=== PATIENT | male | born 1960 | race Caucasian/White ===

== ENCOUNTER → 2017-07-31 | Outpatient (CLI) | payer OTHER ==
[~2017-07-31] MED LIST: ALBUAER2 INH; MULT-506 PO
== END | disposition home or self-care (01) ==
LOC: C.RDSM 12:52
PROVIDERS: ATTEND Orthopaedic Surgery Sports Medicine
DX: M25.512 Pain in left shoulder (principal)

== ENCOUNTER → 2017-09-05 | Outpatient (CLI) | payer OTHER ==
--- NOTE | 2017-09-05 11:37 | DIAGNOSTIC IMAGING REPORT ---
LEFT SHOULDER MRI HISTORY: Left shoulder PAIN TECHNIQUE: Multiplanar multisequence MRI of the left shoulder was performed without contrast. COMPARISON STUDY: Left shoulder 07/31/2017. FINDINGS: AC joint: Mild AC joint arthrosis demonstrated by joint space narrowing and subchondral edema. Rotator cuff: The teres minor and infraspinatus tendons are intact. Full-thickness tear of the supraspinatus tendon which measures 16 x 9 mm. This results in the trace fluid within the subacromial/subdeltoid bursa. There is also a partial tear of the distal subscapularis tendon. Labrum: Linear signal abnormality within the superior labrum consistent with a SLAP tear. Biceps tendon: There is a high-grade partial versus full-thickness tear at the proximal long head of the biceps tendon within the proximal bicipital groove.. Bones: No fracture or dislocation. Cartilage: Mild cartilage thinning within the humeral head and superior glenoid. Miscellaneous: No significant joint effusion. IMPRESSION: 1. Full-thickness tear of the supraspinatus tendon. 2. Partial tear of the distal subscapularis tendon. 3. High-grade partial versus complete tear within the proximal long head of the biceps tendon. 4. Small SLAP tear. Electronically signed by: Jose De Jesus Phipps M.D. 09/05/2017 11:36 AM Dictated Date/Time: 09/05/2017 11:28 AM
== END | disposition home or self-care (01) ==
LOC: C.MRI 10:24
PROVIDERS: ATTEND Orthopaedic Surgery Sports Medicine
DX: M75.22 Bicipital tendinitis, left shoulder (principal)

== ENCOUNTER → 2017-10-05 | Outpatient (CLI) | payer OTHER ==
[~2017-10-05] MED LIST changes: -ALBUAER2 INH; -MULT-506 PO; +VNTHFA/IN INH
[2017-10-05 09:31] LABS: HEMATOCRIT 43.9 % (42-52); HEMOGLOBIN 15.1 g/dL (14.0-18.0); MEAN CELL VOLUME 90.9 fL (80-100); MEAN CORPUSCULAR HEMOGLOBIN 31.3 pg (25-34); MEAN CORPUSCULAR HGB CONC 34.4 g/dl (32-36); MEAN PLATELET VOLUME 10.4 fL (7.4-10.4); PLATELET COUNT 203 K/uL (130-400); RED CELL DISTRIBUTION WIDTH CV 12.3 % (11.5-14.5); RED CELL DISTRIBUTION WIDTH SD 40.8 fL (36.4-46.3); WHITE BLOOD COUNT 5.96 K/uL (4.8-10.8)
[2017-10-05 09:42] LABS: BLOOD UREA NITROGEN 15 mg/dl (7-18); CALCIUM 9.1 mg/dl (8.5-10.1); CARBON DIOXIDE 29 mmol/L (21-32); GLUCOSE 85 mg/dl (70-99); POTASSIUM 3.9 mmol/L (3.5-5.1); SODIUM 138 mmol/L (136-145)
== END | disposition home or self-care (01) ==
LOC: C.CPL 07:14
PROVIDERS: ATTEND Physician Assistant
DX: Z01.818 Encounter for other preprocedural examination (principal); M75.100 Unspecified rotator cuff tear or rupture of unspecified shoulder, not specified as traumatic

== ENCOUNTER 2023-04-27 03:58 | Observation (INO) ==
[2023-04-27] MEDS ORDERED: ONDANSETRON INJ 2 MG/ML 2 ML VIAL IV STA (04:10)
[2023-04-27] MEDS ORDERED: KETOROLAC TROMETHAMINE 15 MG/ML VIAL IV STA (04:10)
[2023-04-27] MEDS: TAMSULOSIN HCL 0.4 MG CAP PO ONE ×2 (04:22→04:44)
--- NOTE | 2023-04-27 04:30 | Emergency Department Note ---
History of Present Illness General Chief complaint: Flank Pain Stated complaint: LEFT KIDNEY PAIN IN TO GUT Time Seen by Provider: 04/27/23 04:10 History of Present Illness Maximum Pain Intensity: 9 This 62-year-old male presents the ER complaining of left flank pain has been intermittent for the past week or 2 they got more severe tonight. Patient had a CAT scan outpatient done earlier today. Patient says he comes in now because he cannot tolerate the pain. Patient denies chest pain, dyspnea, fever, chills, flulike illness. Home Medications Medication Instructions Recorded Confirmed Type ibuprofen 200 mg tablet (Advil) 200 mg PO Q6H PRN Pain 11/01/22 01/29/23 History albuterol sulfate 90 mcg/actuation 2 puff inhalation Q6H PRN 01/11/23 01/29/23 Rx aerosol inhaler (Proventil HFA) shortness of breath or wheezing #8.5 grams tadalafil 20 mg tablet 20 mg PO DAILY #30 tabs 01/22/23 01/29/23 Rx Allergies Allergy/AdvReac Type Severity Reaction Status Date / Time latex Allergy Mild see comment Verified 01/29/23 11:46 Penicillins Allergy Mild HIVES AND Unverified 01/29/23 11:46 SWELLING A CHILD Past Med/Surg History Medical History Allergic rhinitis Asthma due to environmental allergies has never needed prn inhaler Chronic sinusitis Dyslipidemia no meds Environmental and seasonal allergies Esophageal reflux History of COVID-19 09/2022- "flu like symptoms"; resolved Prediabetes A1c 5.8% 10/2022 Renal calculi monitoring Surgical History History of carpal tunnel surgery History of knee surgery right knee meniscus History of rotator cuff surgery History of shoulder surgery right decompression x2 Hx of shoulder surgery bicep repair Family History Mother Heart disease Asthma Brother Colorectal cancer Sister Colorectal cancer Aunt Heart disease Uncle Heart disease Social History Smoking Status: Never smoker Tobacco Type: Smokeless Tobacco (Dip or Chew) Second Hand Exposure: No; Do You Dip or Chew Tobacco: Yes (advised); Hx Alcohol Use: No Hx Substance Use: No Preferred Language: Pakistani Communication Ability: Effective Visual Impairment: Limited Hearing Ability: Hard of Hearing 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 Required: No Beliefs That Will Affect Care: None marital status: Current Living Situation: Spouse and Family current occupational status: employed Feels Safe at Home: Yes Childhood Exposure to Second-Hand Smoke: Yes Diet: regular caffeine: Yes Dental Care, Regularly: Yes Physical Activity Frequency: Daily Physical Activity Frequency Comment: active lifestyle Seatbelt Use: always Sunscreen Use: No Do you think of yourself as: straight/heterosexual Assistive Devices: Glasses Review of Systems A total of 10 systems reviewed and were otherwise negative Physical Exam Vital Signs Vital Signs - 24 hr 04/27/23 04:02 04/27/23 04:48 04/27/23 04:10 Temperature 36.6 C Temperature Source Temporal Artery Scan Pulse Rate 50 L 52 L Pulse Rate [Apical] 59 L Pulse Rhythm Respiratory Rate 18 14 Respiratory Effort / Characteristics Non-Labored Spontaneous Non-Labored Spontaneous Respiratory Depth Normal Normal Blood Pressure 182/68 H Blood Pressure [Right Arm] 140/85 Blood Pressure Mean 106 Blood Pressure Mean [Right Arm] 103 Blood Pressure Position Sitting Pulse Oximetry 99 95 Oxygen Delivery Method Room Air Room Air Sepsis Recent Fever Within 48 Hours No Sepsis New/Unexplained Change in Mental Status No Sepsis Action Taken by Nursing No Action Required 04/27/23 04:10 Temperature Temperature Source Pulse Rate 57 L Pulse Rate [Apical] Pulse Rhythm Regular Respiratory Rate 14 Respiratory Effort / Characteristics Respiratory Depth Blood Pressure Blood Pressure [Right Arm] Blood Pressure Mean Blood Pressure Mean [Right Arm] Blood Pressure Position Pulse Oximetry 95 Oxygen Delivery Method Room Air Sepsis Recent Fever Within 48 Hours Sepsis New/Unexplained Change in Mental Status Sepsis Action Taken by Nursing VITALS: Vitals are noted on the nurse's note and reviewed by myself. Vital signs stable. GENERAL: Pleasant male, in no acute distress, nondiaphoretic, well-developed well-nourished. SKIN: The skin was without rashes, erythema, edema, or bruising. There is no tenting of the skin. Capillary reflex less than 2 seconds. HEAD: Normocephalic atraumatic. EARS: External auditory canals clear EYES: Pupils equal round and reactive to light and accommodation. Conjunctivae without injection, sclerae without icterus. Extraocular movements intact. NOSE: Patent, turbinates without inflammation or discharge. MOUTH: Mucous membranes moist. Pharynx without erythema or exudate. Uvula midline. Airway patent. Tongue does not deviate. NECK: Supple without nuchal rigidity. No lymphadenopathy. No thyromegaly. Cervical spine is nontender. No JVD. HEART: Regular rate and rhythm LUNGS: Clear to auscultation bilaterally without wheezes, rales or rhonchi. No retractions or accessory muscle use. ABDOMEN: Positive bowel sounds x 4. Normal tympanic percussion. Soft, nontender, without masses or organomegaly. Awan sign negative. No guarding or rebound tenderness. No CVA tenderness MUSCULOSKELETAL: No muscle atrophy, erythema, or edema noted. NEURO: Patient was alert and oriented to person place and time. Normal sensation to light and sharp touch. No focal neurological deficits. Course Administered Medications Discontinued Medications Ketorolac Tromethamine (Ketorolac Tromethamine 15 Mg/Ml Vial) 10 mg IV NOW STA Stop: 04/27/23 04:11 Last Admin: 04/27/23 04:21 Dose: 10 mg Documented By: ROOSEVELT Morphine Sulfate (Morphine Sulfate 4 Mg/Ml 1 Ml Carp\\Vial) 4 mg IV NOW STA Stop: 04/27/23 04:34 Last Admin: 04/27/23 04:44 Dose: 4 mg Documented By: ROOSEVELT Ondansetron HCl (Ondansetron Inj 2 Mg/Ml 2 Ml Vial) 4 mg IV NOW STA Stop: 04/27/23 04:11 Last Admin: 04/27/23 04:21 Dose: 4 mg Documented By: ROOSEVELT Tamsulosin HCl (Tamsulosin Hcl 0.4 Mg Cap) 0.4 mg PO NOW ONE Stop: 04/27/23 04:11 Last Admin: 04/27/23 04:44 Dose: 0.4 mg Documented By: ROOSEVELT Medical Decision Making Medical Records Attestation: I reviewed the patient's medical records. Home Medications Current Medication List: was personally reviewed by me Laboratory Data Attestation: I reviewed the patient's lab results. 04/27/23 04:30 04/27/23 04:30 Lab Results 04/27/23 04/27/23 04/27/23 Range/Units 04:30 04:30 04:30 WBC 10.21 (4.8-10.8) K/ul RBC 4.88 (4.70-6.10) M/uL Hgb 15.4 (14.0-18.0) g/dl Hct 43.7 (42.0-52.0) % MCV 89.5 (80.0-100.0) fL MCH 31.6 (25.0-34.0) pg MCHC 35.2 (32.0-36.0) g/dL RDW Std Deviation 39.6 (36.4-46.3) fL RDW Coeff of [place] 12.1 (11.5-14.5) % Plt Count 204 (130-400) K/uL MPV 9.8 (9.4-12.4) fL Immature Gran % (Auto) 0.4 % Neut % (Auto) 67.1 % Lymph % (Auto) 19.2 % [place] % (Auto) 10.1 % Eos % (Auto) 2.6 % Baso % (Auto) 0.6 % Neut # (Auto) 6.85 H (1.40-6.50) K/uL Lymph # (Auto) 1.96 (1.2-3.4) K/uL [place] # (Auto) 1.03 H (0.11-0.59) K/uL Eos # (Auto) 0.27 (0-0.50) K/uL Baso # (Auto) 0.06 (0-0.2) K/uL Immature Gran # (Auto) 0.04 (0.01-0.20) K/uL Sodium 137 (136-145) mmol/L Potassium 3.8 (3.5-5.1) mmol/L Chloride 101 (98-107) mmol/L Carbon Dioxide 26 (21-32) mmol/L Anion Gap 10 (3-11) BUN 21 (6-23) mg/dl Creatinine 1.79 H (0.6-1.4) mg/dl Est Cr Clr Drug Dosing 43.9 ml/min Est GFR ( Amer) 46.7 ml/min Est GFR (Non-Af Amer) 40.3 ml/min BUN/Creatinine Ratio 11.7 (10-20) Glucose 109 H (70-99(Fasting)) mg/dl Calcium 10.0 (8.6-10.3) mg/dl Total Bilirubin 0.8 (0.2-1.0) mg/dl AST 15 (13-39) U/L ALT 13 (7-52) U/L Alkaline Phosphatase 71 (34-104) U/L Total Protein 8.0 (6.0-8.3) gm/dl Albumin 4.8 (3.4-5.0) gm/dl Globulin 3.2 (2.5-4.0) gm/dl Albumin/Globulin Ratio 1.5 (0.9-2) Lipase 25 (11-82) U/L Urine Color Yellow Urine Appearance Clear (Clear) Urine pH 5.5 (4.5-7.5) Ur Specific [place] 1.016 (1.000-1.030) Urine Protein Negative (Negative) Urine Glucose (UA) Negative (Negative) Urine Ketones Trace H (Negative) Urine Blood Negative (Negative) Urine Nitrite Negative (Negative) Urine Bilirubin Negative (Negative) Urine Urobilinogen Negative (Negative) Ur Leukocyte Esterase Negative (Negative) Imaging Data Attestation: I personally reviewed and interpreted this imaging study as follows: MDM Narrative Prior records/ancillary studies reviewed. Triage Nursing notes reviewed. Additional history obtained from the family. The patient's history was concerning for flank pain. Differential diagnosis: Etiologies such as renal colic, appendicitis, diverticulitis, mesenteric ischemia, aortic pathology, infections, inflammatory bowel disease, PUD, biliary pathology, UTI, as well as others were entertained. Physical examination findings: As above. ER treatment provided: Toradol, Zofran, Flomax and morphine were ordered On reassessment the patient felt better. Diagnostic interpretation by me: The labs Independently Interpreted by myself revealed acute kidney injury. Urinalysis revealed There was no sign of UTI. Imaging studies: CT was read outpatient earlier today and was independently interpreted by myself. [place], [place] [phone] CT Scan Report Patient:KENNEY ARNDT Admit Date:04/26/23 MR#:[id number] Address1:[address] [facility] Acct ID:[id number] Address2: Date:1960 [facility] Zip:[place] [address] Age:62 Location:CT Sex:M Room/Bed: Att Phy:Taylor Dupree CRNP Diagnosis:R10.9 - Unspecified abdominal pain Marina Phy:Geovani Churchill CRNP Service Date:04/26/23 [facility] Phy: Interpreting Phy:Jose De Jesus Phipps MDAdmit Phy: Ordering Phy:Taylor Dupree CRNP cc: ~ ABDOMEN AND PELVIS CT WITHOUT CONTRAST CT DOSE: 902.77 mGy.cm HISTORY: Left-sided abdominal pain. Hematuria. Stones. R10.9 - Unspecified abdominal pain TECHNIQUE: Multiaxial CT images of the abdomen and pelvis were performed without contrast. A dose lowering technique was utilized adhering to the principles of ALARA. COMPARISON STUDY: Abdomen and pelvis CT 03/07/2007. FINDINGS: The lung bases are clear. No pneumoperitoneum. No pneumatosis. No acute fractures identified. Mild bilateral gynecomastia is noted. Small fat- containing right inguinal hernia. The unenhanced liver, gallbladder, pancreas, spleen, and adrenal glands are unremarkable. Normal caliber abdominal aorta. No retroperitoneal or pelvic lymphadenopathy. The bladder is decompressed but appears unremarkable. Suboptimal evaluation for bowel pathology due to the lack of intravenous and oral contrast. However, there is no definite bowel wall thickening or obstruction. Colonic diverticulosis. No evidence for acute diverticulitis. Normal appendix. Multiple bilateral renal calculi measuring up to 4 mm. No right-sided hydronephrosis. Mild left-sided hydronephrosis secondary to an obstructing 9 x 6 mm stone within the distal left ureter on image 286. This is beyond the level of the iliac vessels. IMPRESSION: 1. Mild left hydronephrosis secondary to an obstructing 9 x 6 mm distal left ureteral stone. 2. Bilateral nephrolithiasis. 3. Additional findings as described above. ACT 112: Negative or not required by law. Electronically signed by: Jose De Jesus Phipps M.D. 04/26/2023 8:28 PM Consultation: A consultation was placed with the hospitalist. The case was discussed and diagnostics were reviewed. The patient was evaluated in the ER for further treatment. It appears that the patient has isolated renal colic from a left sided stone with acute kidney injury. Labs and diagnostics were independent interpreted by myself. Patient was still moderate amount of pain. Medicine was consulted and the case is discussed. He will be admitted to the medical service for further evaluation and treatment. No UTI. Stable labs. By the evaluation outlined ab ove emergent etiologies such as appendicitis, diverticulitis, mesenteric ischemia, aortic pathology, infections, inflammatory bowel disease, PUD, biliary pathology, UTI, as well as others were deemed relatively unlikely. The pt informed about the findings as listed above. All questions were answered and pleased with the treatment. The chart was completed utilizing [employer] Speech voice recognition software. Grammatical errors, random word insertions, pronoun errors, and incomplete sentences are an occassional consequence of this system due to software limitations, ambient noise, and hardware issues. Any formal questions or concerns about the content, text, or information contained within the body of this dictation should be directly addressed to the physician nursing home assistant for clarification. Impression & Plan Renal colic on left side, Ureterolithiasis, VLADIMIR (acute kidney injury) Discharge Plan Visit Data Chief Complaint: Flank Pain Stated Complaint: LEFT KIDNEY PAIN IN TO GUT ED Provider: Kelley Sullivan ED Midlevel Provider: Miriam Gill Discharge Problem: Renal colic on left side, Ureterolithiasis, VLADIMIR (acute kidney injury) Patient Disposition: Being Evaluated by Hospitalist Condition: Good Forms Stand Alone Forms: [facility] Friendly Score Prescriptions Prescriptions: No Action Shingrix gE Antigen Component 50 mcg suspension for reconstitution 50 mcg IM ONCE Qty: 0.5 0RF ibuprofen [Advil] 200 mg tablet 200 mg PO Q6H PRN (Reason: Pain) albuterol sulfate [Proventil HFA] 90 mcg/actuation HFA aerosol inhaler 2 puff inhalation Q6H PRN (Reason: shortness of breath or wheezing) Qty: 8.5 0RF tadalafil 20 mg tablet 20 mg PO DAILY Qty: 30 11RF Referrals Referrals: Geovani Churchill CRNP [Primary Care Provider] -
[2023-04-27] MEDS ORDERED: MoRPHine SULFATE 4 MG/ML 1 ML CARP\\VIAL IV STA (04:33)
[2023-04-27 04:48] LABS: Basophils # (auto) 0.06 K/uL (0-0.2); Basophils % (auto) 0.6 %; Eosinophils # (auto) 0.27 K/uL (0-0.50); Eosinophils % (auto) 2.6 %; Hematocrit (blood only) 43.7 % (42.0-52.0); Hemoglobin 15.4 g/dl (14.0-18.0); Immature Granulocytes # (auto) 0.04 K/uL (0.01-0.20); Immature Granulocytes % (auto) 0.4 %; Lymphocytes # (auto) 1.96 K/uL (1.2-3.4); Lymphocytes % (auto) 19.2 %; Mean Corpuscular Hemoglobin 31.6 pg (25.0-34.0); Mean Corpuscular Hgb Conc 35.2 g/dL (32.0-36.0); Mean Corpuscular Volume 89.5 fL (80.0-100.0); Mean Platelet Volume 9.8 fL (9.4-12.4); Monocytes # (auto) 1.03 K/uL (0.11-0.59); Monocytes % (auto) 10.1 %; Neutrophils # (auto) 6.85 K/uL (1.40-6.50); Neutrophils % (auto) 67.1 %; Platelet Count 204 K/uL (130-400); RDW Coefficient of Variation 12.1 % (11.5-14.5); RDW Standard Deviation 39.6 fL (36.4-46.3); Red Blood Count 4.88 M/uL (4.70-6.10); White Blood Count 10.21 K/ul (4.8-10.8)
[2023-04-27 04:54] LABS: Appearance Urine Clear (Clear); Bilirubin Urine Negative (Negative); Blood Urine Negative (Negative); Color Urine Yellow; Glucose Urine UA Negative (Negative); Ketones Urine Trace (Negative); Leukocyte Esterase Urine Negative (Negative); Nitrite Urine Negative (Negative); Protein Urine Negative (Negative); Specific Gravity Urine 1.016 (1.000-1.030); Urobilinogen Urine Negative (Negative); pH Urine 5.5 (4.5-7.5)
[2023-04-27 04:59] LABS: Albumin Globulin Ratio 1.5 (0.9-2); Albumin Level 4.8 gm/dl (3.4-5.0); BUN Creatinine Ratio 11.7 (10-20); Bilirubin,Total 0.8 mg/dl (0.2-1.0); Creatinine Clr Calc Pharmacy 43.9 ml/min; Est GFR (African American) 46.7 ml/min; Est GFR (Non-African American) 40.3 ml/min; Globulin 3.2 gm/dl (2.5-4.0); Potassium 3.8 mmol/L (3.5-5.1)
--- NOTE | 2023-04-27 05:58 | History & Physical Report ---
Date of Service April 27, 2023 Assessment & Plan (1) Ureterolithiasis: Plan: 62yo male presenting with ongoing left flank pain, nausea and vomiting. Found to have mild left hydronephrosis secondary to an obstructing 9 x 6 mm distal left ureteral stone. Patient with mild VLADIMIR as well. Reports decreased oral intake. -Admit to medical, keep NPO -LR at 125mL/hr -Strain urine -Zofran as needed for nausea -Morphine as needed for pain -Flomax 0.4mg po daily -Urology consultation appreciated (2) VLADIMIR (acute kidney injury): Plan: Cr elevated to 1.79 from normal baseline of appx 1. UA with trace ketones. No evidence of infection. Electrolytes and metabolic panel otherwise unremarkable -LR at 125mL/hr x 2 liters -Repeat chemistry in AM -Avoid nephrotoxic agents -Renal dosing where needed F/E/N - LR at 125mL/hr x 2L, monitor electrolytes and replete as needed, NPO for now Ppx - Low risk for DVT Code - Full per discussion with patient Dispo - Admit to medical History of Present Illness Chief Complaint: left flank pain Primary Care Provider: SLOAN Hauser Kenney Saeed is a pleasant 62yo male presenting with left flank pain ongoing since 04/09/23. Patient has had constant pain in the left flank with radiation into the left testicle ranging 3-10/10 in severity. He has had intermittent nausea, vomiting and po intolerance as well. He has had kidney stones in the past and this feels similar. Patient contacted Urology with these complaints and had a KUB performed on 04/13/23 which revealed left sided nephrolithiasis - small and nonobstructing measuring up to 4mm. Patient's pain persisted and worsened. He contacted Uro logy again today and had a CT performed which revealed mild left hydronephrosis secondary to an obstructing 9x6mm distal left ureteral stone and bilateral nephrolithiasis. Patient presently feeling fairly comfortable. Pain 3/10. He denies fever but states that he gets chills and diaphoresis associated with the severe episodes of pain. He continues to have intermittent nausea but no recent vomiting. Additionally he reports some constipation ER Course: Zofran Toradol Flomax Morphine Allergies Allergy/AdvReac Type Severity Reaction Status Date / Time latex Allergy Mild see comment Verified 01/29/23 11:46 Penicillins Allergy Mild HIVES AND Unverified 01/29/23 11:46 SWELLING A CHILD Home Medications Medication Instructions Recorded Confirmed Type ibuprofen 200 mg tablet (Advil) 200 mg PO Q6H PRN Pain 11/01/22 01/29/23 History albuterol sulfate 90 mcg/actuation 2 puff inhalation Q6H PRN 01/11/23 01/29/23 Rx aerosol inhaler (Proventil HFA) shortness of breath or wheezing #8.5 grams tadalafil 20 mg tablet 20 mg PO DAILY #30 tabs 01/22/23 01/29/23 Rx Past Med/Surg History Medical History Allergic rhinitis Asthma due to environmental allergies has never needed prn inhaler Chronic sinusitis Dyslipidemia no meds Environmental and seasonal allergies Esophageal reflux History of COVID-19 09/2022- "flu like symptoms"; resolved Prediabetes A1c 5.8% 10/2022 Renal calculi monitoring Surgical History History of carpal tunnel surgery History of knee surgery right knee meniscus History of rotator cuff surgery History of shoulder surgery right decompression x2 Hx of shoulder surgery bicep repair Family History Mother Heart disease Asthma Brother Colorectal cancer Sister Colorectal cancer Aunt Heart disease Uncle Heart disease Social History Smoking Status: Never smoker Tobacco Type: Smokeless Tobacco (Dip or Chew) Second Hand Exposure: No; Do You Dip or Chew Tobacco: Yes (advised); Hx Alcohol Use: No Hx Substance Use: No Preferred Language: Turkish Communication Ability: Effective Visual Impairment: Limited Hearing Ability: Hard of Hearing Art Objects Salesperson Required: No Beliefs That Will Affect Care: None marital status: Current Living Situation: Spouse and Family current occupational status: employed Feels Safe at Home: Yes Childhood Exposure to Second-Hand Smoke: Yes Diet: regular caffeine: Yes Dental Care, Regularly: Yes Physical Activity Frequency: Daily Physical Activity Frequency Comment: active lifestyle Seatbelt Use: always Sunscreen Use: No Do you think of yourself as: straight/heterosexual Assistive Devices: Glasses Review of Systems Review of Systems: All systems reviewed & are unremarkable except as noted in HPI & below Physical Exam Physical Exam: General: patient resting comfortably, NAD, non-toxic in appearance, AA&O x 4 Skin: warm, dry, intact, no rashes or lesions HEENT: NC/AT, PERRL, EOMI, anicteric sclera, conjunctiva without injection, external ear normal to inspection and nontender, nares patent, slightly dry mucus membranes, dentition intact, no oropharyngeal lesions, neck supple, trachea midline, no LAD, no thyromegaly, no JVD Heart: +S1/S2, regular, no m/r/g Lungs: equal air entry bilaterally, no rales/rhonchi/wheezes Abd: +BS, soft, NT/ND, no masses/organomegaly/ascites, left flank pain Ext: warm, 2+ pulses in UE/LE bilaterally, no clubbing/cyanosis or edema Neuro: nonfocal, patient AA&O x 4, speech intact, no facial droop, moving all extremities on command with equal strength 5/5 Results & Data Results & Data Vital Signs (Past 12 Hours) Vital Signs Temp Pulse Pulse Resp BP BP Pulse Ox 04/27/23 04:10 57 L 14 95 04/27/23 04:10 59 L 14 140/85 95 04/27/23 04:48 52 L 04/27/23 04:02 36.6 C 50 L 18 182/68 H 99 O2 Del Method 04/27/23 04:10 Room Air 04/27/23 04:10 Room Air 04/27/23 04:48 04/27/23 04:02 Room Air Laboratory Results Laboratory Results WBC 10.21 K/ul (4.8-10.8) 04/27/23 04:30 RBC 4.88 M/uL (4.70-6.10) 04/27/23 04:30 Hgb 15.4 g/dl (14.0-18.0) 04/27/23 04:30 Hct 43.7 % (42.0-52.0) 04/27/23 04:30 MCV 89.5 fL (80.0-100.0) 04/27/23 04:30 MCH 31.6 pg (25.0-34.0) 04/27/23 04:30 MCHC 35.2 g/dL (32.0-36.0) 04/27/23 04:30 RDW Std Deviation 39.6 fL (36.4-46.3) 04/27/23 04:30 RDW Coeff of [place] 12.1 % (11.5-14.5) 04/27/23 04:30 Plt Count 204 K/uL (130-400) 04/27/23 04:30 MPV 9.8 fL (9.4-12.4) 04/27/23 04:30 Immature Gran % (Auto) 0.4 % 04/27/23 04:30 Neut % (Auto) 67.1 % 04/27/23 04:30 Lymph % (Auto) 19.2 % 04/27/23 04:30 [place] % (Auto) 10.1 % 04/27/23 04:30 Eos % (Auto) 2.6 % 04/27/23 04:30 Baso % (Auto) 0.6 % 04/27/23 04:30 Neut # (Auto) 6.85 K/uL (1.40-6.50) H 04/27/23 04:30 Lymph # (Auto) 1.96 K/uL (1.2-3.4) 04/27/23 04:30 [place] # (Auto) 1.03 K/uL (0.11-0.59) H 04/27/23 04:30 Eos # (Auto) 0.27 K/uL (0-0.50) 04/27/23 04:30 Baso # (Auto) 0.06 K/uL (0-0.2) 04/27/23 04:30 Immature Gran # (Auto) 0.04 K/uL (0.01-0.20) 04/27/23 04:30 Sodium 137 mmol/L (136-145) 04/27/23 04:30 Potassium 3.8 mmol/L (3.5-5.1) 04/27/23 04:30 Chloride 101 mmol/L (98-107) 04/27/23 04:30 Carbon Dioxide 26 mmol/L (21-32) 04/27/23 04:30 Anion Gap 10 (3-11) 04/27/23 04:30 BUN 21 mg/dl (6-23) 04/27/23 04:30 Creatinine 1.79 mg/dl (0.6-1.4) H 04/27/23 04:30 Est Cr Clr Drug Dosing 43.9 ml/min 04/27/23 04:30 Est GFR ( Amer) 46.7 ml/min 04/27/23 04:30 Est GFR (Non-Af Amer) 40.3 ml/min 04/27/23 04:30 BUN/Creatinine Ratio 11.7 (10-20) 04/27/23 04:30 Glucose 109 mg/dl (70-99(Fasting)) H 04/27/23 04:30 Calcium 10.0 mg/dl (8.6-10.3) 04/27/23 04:30 Total Bilirubin 0.8 mg/dl (0.2-1.0) 04/27/23 04:30 AST 15 U/L (13-39) 04/27/23 04:30 ALT 13 U/L (7-52) 04/27/23 04:30 Alkaline Phosphatase 71 U/L (34-104) 04/27/23 04:30 Total Protein 8.0 gm/dl (6.0-8.3) 04/27/23 04:30 Albumin 4.8 gm/dl (3.4-5.0) 04/27/23 04:30 Globulin 3.2 gm/dl (2.5-4.0) 04/27/23 04:30 Albumin/Globulin Ratio 1.5 (0.9-2) 04/27/23 04:30 Lipase 25 U/L (11-82) 04/27/23 04:30 Urine Color Yellow 04/27/23 04:30 Urine Appearance Clear (Clear) 04/27/23 04:30 Urine pH 5.5 (4.5-7.5) 04/27/23 04:30 Ur Specific [place] 1.016 (1.000-1.030) 04/27/23 04:30 Urine Protein Negative (Negative) 04/27/23 04:30 Urine Glucose (UA) Negative (Negative) 04/27/23 04:30 Urine Ketones Trace (Negative) H 04/27/23 04:30 Urine Blood Negative (Negative) 04/27/23 04:30 Urine Nitrite Negative (Negative) 04/27/23 04:30 Urine Bilirubin Negative (Negative) 04/27/23 04:30 Urine Urobilinogen Negative (Negative) 04/27/23 04:30 Ur Leukocyte Esterase Negative (Negative) 04/27/23 04:30 Diagnostic Findings [place], [place] [phone] CT Scan Report Patient:KENNEY ARNDT Admit Date:04/26/23 MR#:[id number] Address1:[address] [facility] Acct ID:[id number] Address2: Date:1960 [facility] [place] Zip:[place] [address] Age:62 Location:CT Sex:M Room/Bed: Att Phy:Taylor Dupree CRNP Diagnosis:R10.9 - Unspecified abdominal pain Marina Phy:Geovani Churchill CRNP Service Date:04/26/23 Fam Phy: Interpreting Phy:Jose De Jesus Phipps MDAdmit Phy: Ordering Phy:Taylor Dupree CRNP cc: ~ ABDOMEN AND PELVIS CT WITHOUT CONTRAST CT DOSE: 902.77 mGy.cm HISTORY: Left-sided abdominal pain. Hematuria. Stones. R10.9 - Unspecified abdominal pain TECHNIQUE: Multiaxial CT images of the abdomen and pelvis were performed without contrast. A dose lowering technique was utilized adhering to the principles of ALARA. COMPARISON STUDY: Abdomen and pelvis CT 03/07/2007. FINDINGS: The lung bases are clear. No pneumoperitoneum. No pneumatosis. No acute fractures identified. Mild bilateral gynecomastia is noted. Small fat- containing right inguinal hernia. The unenhanced liver, gallbladder, pancreas, spleen, and adrenal glands are unremarkable. Normal caliber abdominal aorta. No retroperitoneal or pelvic lymphadenopathy. The bladder is decompressed but appears unremarkable. Suboptimal evaluation for bowel pathology due to the lack of intravenous and oral contrast. However, there is no definite bowel wall thickening or obstruction. Colonic diverticulosis. No evidence for acute diverticulitis. Normal appendix. Multiple bilateral renal calculi measuring up to 4 mm. No right-sided hydronephrosis. Mild left-sided hydronephrosis secondary to an obstructing 9 x 6 mm stone within the distal left ureter on image 286. This is beyond the level of the iliac vessels. IMPRESSION: 1. Mild left hydronephrosis secondary to an obstructing 9 x 6 mm distal left ureteral stone. 2. Bilateral nephrolithiasis. 3. Additional findings as described above. ACT 112: Negative or not required by law. Electronically signed by: Jose De Jesus Phipps M.D. 04/26/2023 8:28 PM Dictated:04/26/232020 Transcribed: 04/26/232020 PG Care Time/CCT Total # of Minutes Spent Total Time Spent with Patient: Total time spent is greater than 50% in coordination of care (as documented) at patient's floor/unit and/or counseling patient: Coding Level of Care Code 50925 INT INP/OBS CARE 2/55MIN Diagnoses Ureterolithiasis N20.1 VLADIMIR (acute kidney injury) N17.9
[2023-04-27] MEDS ORDERED: HYDROmorphone INJ 1 MG/ML SYRINGE IV STA (06:31)
[2023-04-27] MEDS ORDERED: MoRPHine SULFATE 4 MG/ML 1 ML CARP\\VIAL IV PRN (08:16)
[2023-04-27] MEDS ORDERED: ONDANSETRON INJ 2 MG/ML 2 ML VIAL IV PRN ×2 (08:16→11:55)
[2023-04-27] MEDS ORDERED: MoRPHine SULFATE 2 MG/ML CARP IV PRN (08:16)
[2023-04-27] MEDS ORDERED: ACETAMINOPHEN 325 MG TAB PO PRN (08:16)
[2023-04-27] MEDS ORDERED: LACTATED RINGER'S 1,000 ML IV SCH (08:16)
--- NOTE | 2023-04-27 08:36 | Urology Consultation ---
Date of Consultation April 27, 2023 Assessment & Plan (1) Renal colic on left side: (2) Ureterolithiasis: (3) VLADIMIR (acute kidney injury): Plan 62yo/M with severe left flank pain and VLADIMIR secondary to a 9 x 6 mm distal left ureteral stone. He is afebrile and hemodynamically stable. Labs show no leukocytosis and an VLADIMIR of 1.79. Urinalysis without signs of infection. We discussed acute stone management with cystoscopy and stent placement. Ureteral stents were discussed as well as postoperative issues and pain management. He is aware that a second procedure will be needed for stone treatment. Given his intractable pain and VLADIMIR, will plan to proceed to OR today for cysto scopy, left retrograde pyelogram, left ureteral stent placement. Risk and benefits discussed as per consent. Keep NPO. Continue supportive care and pain management. Will cover with IV ciprofloxacin preoperatively. Patient agreeable to plan, all questions were answered. History of Present Illness Attending Physician: Gia Adame DO History of Present Illness 62-year-old male who presented to the ED with ongoing left flank pain, nausea and vomiting. Patient reports persistent left flank pain for approximately 2 weeks. He contacted our office at the end of March and had a KUB showing left- sided stones, no passing or obstructing stones. His pain persisted and a CT abdomen pelvis was obtained 04/26/23 showing an obstructing 9 x 6 mm distal left ureteral stone. His pain worsened and he presented to the ED. On arrival he was afebrile and hemodynamically stable. Labs show no leukocytosis and VLADIMIR of 1.79. Urinalysis without signs of infection. He was given Zofran, Toradol, Flomax, morphine in the ED. Admitted to medicine for further management. Patient examined at bedside in the ED. Awake, resting in bed on arrival. No acute distress. Patient reports persistent left-sided flank pain for approximately 2 weeks. Currently managing with medication. Denies fevers, chills, nausea, vomiting at present. Voiding without issue. Denies hematuria or dysuria. Had a few sips of water this morning. Has not eaten since yesterday CT abdomen pelvis- 1. Mild left hydronephrosis secondary to an obstructing 9 x 6 mm distal left ureteral stone. 2. Bilateral nephrolithiasis. 3. Additional findings as described above. He does report a history of stones several years ago. Allergies Allergy/AdvReac Type Severity Reaction Status Date / Time latex Allergy Mild see comment Verified 04/27/23 09:01 Penicillins Allergy Mild HIVES AND Unverified 04/27/23 09:01 SWELLING A CHILD Home Medications Medication Instructions Recorded Confirmed Type ibuprofen 200 mg tablet (Advil) 200 mg PO Q6H PRN Pain 11/01/22 04/27/23 History albuterol sulfate 90 mcg/actuation 2 puff inhalation Q6H PRN 01/11/23 04/27/23 Rx aerosol inhaler (Proventil HFA) shortness of breath or wheezing #8.5 grams tadalafil 20 mg tablet 20 mg PO DAILY PRN Sexual Activity 04/27/23 04/27/23 History Patient History Medical History Allergic rhinitis Asthma due to environmental allergies has never needed prn inhaler Chronic sinusitis Dyslipidemia no meds Environmental and seasonal allergies Esophageal reflux History of COVID-19 09/2022- "flu like symptoms"; resolved Prediabetes A1c 5.8% 10/2022 Renal calculi monitoring Surgical History History of carpal tunnel surgery History of knee surgery right knee meniscus History of rotator cuff surgery History of shoulder surgery right decompression x2 Hx of shoulder surgery bicep repair Family History Mother Heart disease Asthma Brother Colorectal cancer Sister Colorectal cancer Aunt Heart disease Uncle Heart disease Social History Smoking Status: Never smoker Tobacco Type: Smokeless Tobacco (Dip or Chew) Second Hand Exposure: No; Do You Dip or Chew Tobacco: Yes (advised); Hx Alcohol Use: No Hx Substance Use: No Preferred Language: Upper Sorbian Communication Ability: Effective Visual Impairment: Limited Hearing Ability: Hard of Hearing Acoustic Intelligence Specialist Required: No Beliefs That Will Affect Care: None marital status: Current Living Situation: Spouse current occupational status: employed Feels Safe at Home: Yes Childhood Exposure to Second-Hand Smoke: Yes Diet: regular caffeine: Yes Dental Care, Regularly: Yes Physical Activity Frequency: Daily Physical Activity Frequency Comment: active lifestyle Seatbelt Use: always Sunscreen Use: No Do you think of yourself as: straight/heterosexual Assistive Devices: Glasses Review of Systems Review of Systems: All systems reviewed & are unremarkable except as noted in HPI & below Physical Exam Constitutional: well developed and well nourished; no acute distress Neck: normal visual inspection Respiratory: normal respiratory effort; no respiratory distress and no labored breathing Musculoskeletal: Head/Neck/Chest: normocephalic Skin: No visible rashes or lesions to exposed skin areas Neurologic: moves all extremities and awake Psychiatric: A+Ox3, euthymic affect Results & Data Vital Signs (Past 12 Hours) Vital Signs Temp Pulse Pulse Resp BP BP Pulse Ox 04/27/23 08:06 55 L 04/27/23 06:20 51 L 17 96 04/27/23 06:10 46 L 21 95 04/27/23 06:00 53 L 19 166/93 H 95 04/27/23 05:50 51 L 24 98 04/27/23 05:40 44 L 19 100 04/27/23 05:30 47 L 20 160/90 H 95 04/27/23 05:20 64 19 94 04/27/23 05:10 44 L 16 98 04/27/23 05:00 49 L 17 147/88 H 96 04/27/23 04:50 52 L 14 97 04/27/23 04:49 54 L 21 140/85 97 04/27/23 04:10 57 L 14 95 04/27/23 04:10 59 L 14 140/85 95 04/27/23 04:48 52 L 04/27/23 04:02 36.6 C 50 L 18 182/68 H 99 O2 Del Method 04/27/23 08:06 04/27/23 06:20 04/27/23 06:10 04/27/23 06:00 04/27/23 05:50 04/27/23 05:40 04/27/23 05:30 04/27/23 05:20 04/27/23 05:10 04/27/23 05:00 04/27/23 04:50 04/27/23 04:49 04/27/23 04:10 Room Air 04/27/23 04:10 Room Air 04/27/23 04:48 04/27/23 04:02 Room Air PG Care Time/CCT Total # of Minutes Spent Total Time Spent with Patient: Total time spent is greater than 50% in coordination of care (as documented) at patient's floor/unit and/or counseling patient: Coding Level of Care Code 82785 IN/OBS CONSULT LVL 4,60M Diagnoses Renal colic on left side N23 Ureterolithiasis N20.1 VLADIMIR (acute kidney injury) N17.9
[2023-04-27] MEDS ORDERED: CIPROFLOXACIN / D5W 200 MG/100 ML BAG IV ONE (11:07)
--- NOTE | 2023-04-27 11:54 | Anesthesiology Consultation ---
Date of Service April 27, 2023 Assessment & Plan Chart Review Chart Review: Acceptable Risk for Surgery Consults Requested none History Surgery Operation Date: 04/27/23 11:35 Proposed Procedures p Cystoscopy, Retrograde Pyelogram Left Stent - Polo Bright MD Height/Weight Height: 5 ft 9 in Weight: 83.1 kg Allergies Allergy/AdvReac Type Severity Reaction Status Date / Time latex Allergy Mild see comment Verified 04/27/23 09:01 Penicillins Allergy Mild HIVES AND Unverified 04/27/23 09:01 SWELLING A CHILD Medications Home Medications Medication Instructions Recorded Confirmed Last Taken ibuprofen 200 mg tablet (Advil) 200 mg PO Q6H PRN Pain 11/01/22 04/27/23 04/26/23 12:00 albuterol sulfate 90 mcg/actuation 2 puff inhalation Q6H PRN 01/11/23 04/27/23 Unknown aerosol inhaler (Proventil HFA) shortness of breath or wheezing #8.5 grams tadalafil 20 mg tablet 20 mg PO DAILY PRN Sexual Activity 04/27/23 04/27/23 Unknown Active Medications Generic Name Dose Route Start Last Admin Trade Name Freq PRN Reason Stop Dose Admin Lactated Ringer's 1,000 mls @ 125 mls/hr 04/27/23 08:16 04/27/23 09:28 Lr IV 04/28/23 00:15 125 mls/hr .Q8H XIOMY Administration NPO Date Last Intake of Fluids: 04/27/23 Time Last Intake of Fluids: 04:00 Date Last Intake of Solids: 04/26/23 Time Last Intake of Solids: 18:00 Past Medical History Medical History Allergic rhinitis Asthma due to environmental allergies has never needed prn inhaler Chronic sinusitis Dyslipidemia no meds Environmental and seasonal allergies Esophageal reflux History of COVID-19 09/2022- "flu like symptoms"; resolved Prediabetes A1c 5.8% 10/2022 Renal calculi monitoring Past Family History Family History Mother Heart disease Asthma Brother Colorectal cancer Sister Colorectal cancer Aunt Heart disease Uncle Heart disease Past Surgical History Surgical History History of carpal tunnel surgery History of knee surgery right knee meniscus History of rotator cuff surgery History of shoulder surgery right decompression x2 Hx of shoulder surgery bicep repair Social History Smoking Status: Never smoker tobacco type: smokeless tobacco Do You Dip or Chew Tobacco: Yes (advised) Hx Alcohol Use: No alcohol intake frequency: holidays/special occasions only Hx Substance Use: No substance use type: does not use Physical Exam Vital Signs Last Vital Signs Temp 36.9 C 04/27/23 11:45 Pulse 58 L 04/27/23 11:45 Resp 18 04/27/23 11:45 BP 117/77 04/27/23 11:45 Pulse Ox 97 04/27/23 11:45 O2 Del Method Room Air 04/27/23 11:45 Testing Laboratory Results 04/27/23 04:30 04/27/23 04:30 Urine Color Yellow 04/27/23 04:30 Urine Appearance Clear (Clear) 04/27/23 04:30 Urine pH 5.5 (4.5-7.5) 04/27/23 04:30 Ur Specific [place] 1.016 (1.000-1.030) 04/27/23 04:30 Urine Protein Negative (Negative) 04/27/23 04:30 Urine Glucose (UA) Negative (Negative) 04/27/23 04:30 Urine Ketones Trace (Negative) H 04/27/23 04:30 Urine Nitrite Negative (Negative) 04/27/23 04:30 Ur Leukocyte Esterase Negative (Negative) 04/27/23 04:30
[2023-04-27] MEDS ORDERED: fentaNYL citrate PF 100 MCG/2 ML VIAL IV PRN (11:55)
[2023-04-27] MEDS ORDERED: ePHEDrine sulfate 50 MG/ML AMP IV PRN (11:55)
[2023-04-27] MEDS ORDERED: PROMETHAZINE HCL 12.5 MG in SODIUM CHLORIDE 0.9% 50 ML IV PRN (11:55)
[2023-04-27] MEDS ORDERED: ATROPINE SULFATE 0.1 MG/ML 10ML SYR IV PRN (11:55)
[2023-04-27] MEDS ORDERED: HYDROmorphone INJ 2 MG/ML SYR/VIAL IV PRN (11:55)
[2023-04-27] MEDS ORDERED: MIDAZOLAM HCL 1 MG/ML 2ML VIAL ONE (12:11)
[2023-04-27] MEDS ORDERED: fentaNYL citrate PF 100 MCG/2 ML VIAL ONE (12:11)
[2023-04-27] MEDS ORDERED: PROPOFOL IV EMULSION 10 MG/ML 20 ML VIAL IV ONE (12:23)
[2023-04-27] MEDS ORDERED: ONDANSETRON INJ 2 MG/ML 2 ML VIAL ONE (12:23)
[2023-04-27] MEDS ORDERED: KETOROLAC 30 MG/ML VIAL ONE (12:56)
--- NOTE | 2023-04-27 13:04 | Operative Report ---
PG Post Operative Report Pre & Post Diagnosis Operation Date: 04/27/23 11:35 Pre: Left ureteral stone Post:Left ureteral stone I identified the patient and participated in the time-out.: Yes Procedure Operation Date: 04/27/23 11:35 Procedure: cystoscopy, left ureteral stent Surgeon Polo Bright MD Cemetery Warden none Estimated Blood Loss 0 Findings Consistent with Post-Op Diagnosis Specimens none Description of Procedure The patient was identified in the preoperative holding area, appropriate informed consents were reviewed and completed and the patient was transferred to the operative suite. Upon arrival, appropriate antibiotics and anesthesia were administered and the patient was placed in dorsal lithotomy position and prepped and draped in sterile fashion. Begin the case to pass a 20 [place] cystoscope with 30 degree lens and visual obturator peer inspection revealed a healthy-appearing urethra and slightly tight bladder neck but otherwise healthy appearing prostate. After inspection of the bladder was conducted and revealed healthy appearing mucosa, I turned my attention to the left UO. I cannulated with a sensor wire which advanced the kidney. There was an immediate discharge of bloody, cloudy urine. I then placed a 6 [place] by 26 cm double-J stent seeing a good curl in the kidney as well as the bladder. He was reversed of anesthesia and taken to the recovery room in stable condition. There were no complications. I attest to the content of the Intraoperative Record and any orders documented therein. Any exceptions are noted below.
--- NOTE | 2023-04-27 13:47 | Anesthesiology Progress Note ---
Date of Service April 27, 2023 Anesthesia Post Procedure Vital Signs Vital Signs: Temp Pulse Pulse Resp BP BP Pulse Ox 04/27/23 13:35 58 L 14 110/74 95 04/27/23 13:25 36.4 C L 56 L 14 109/72 95 04/27/23 13:15 57 L 14 107/72 93 04/27/23 13:05 36 C L 63 12 120/73 96 04/27/23 11:45 36.9 C 58 L 18 117/77 97 04/27/23 09:33 62 130/83 98 04/27/23 08:42 60 134/87 95 04/27/23 08:06 55 L 04/27/23 06:20 51 L 17 96 04/27/23 06:10 46 L 21 95 04/27/23 06:00 53 L 19 166/93 H 95 04/27/23 05:50 51 L 24 98 04/27/23 05:40 44 L 19 100 04/27/23 05:30 47 L 20 160/90 H 95 04/27/23 05:20 64 19 94 04/27/23 05:10 44 L 16 98 04/27/23 05:00 49 L 17 147/88 H 96 04/27/23 04:50 52 L 14 97 04/27/23 04:49 54 L 21 140/85 97 04/27/23 04:10 57 L 14 95 04/27/23 04:10 59 L 14 140/85 95 04/27/23 04:48 52 L 04/27/23 04:02 36.6 C 50 L 18 182/68 H 99 O2 Del Method 04/27/23 13:35 Room Air 04/27/23 13:25 Room Air 04/27/23 13:15 Room Air 04/27/23 13:05 Room Air 04/27/23 11:45 Room Air 04/27/23 09:33 Room Air 04/27/23 08:42 Room Air 04/27/23 08:06 04/27/23 06:20 04/27/23 06:10 04/27/23 06:00 04/27/23 05:50 04/27/23 05:40 04/27/23 05:30 04/27/23 05:20 04/27/23 05:10 04/27/23 05:00 04/27/23 04:50 04/27/23 04:49 04/27/23 04:10 Room Air 04/27/23 04:10 Room Air 04/27/23 04:48 04/27/23 04:02 Room Air Pain Intensity Left Flank: Pain Intensity: 9 Transfer of Care Handoff Completed per policy Notes Mental Status: alert / awake / arousable and participated in evaluation Patient Amnestic to Procedure: Yes Nausea / Vomiting: adequately controlled Pain: adequately controlled Airway Patency, RR, SpO2: stable & adequate BP & HR: stable & adequate Hydration State: stable & adequate Anesthetic Complications: no major complications apparent
--- NOTE | 2023-04-27 14:59 | Fluoroscopy Report ---
FL KUB CLINICAL HISTORY: LT TECHNIQUE: 1 views were obtained with the C-arm in the OR with the above procedure. Total fluoroscopy time was 3.6 seconds. Radiation dose was 0.57 mGy. Comparison: Comparison is made to CT abdomen pelvis 04/26/2023 FINDINGS/IMPRESSION: Intraoperative images were obtained of left cystogram with stent placement. Please correlate with intraoperative fluoroscopy and operative report. ACT 112: Negative or not required by law. Electronically signed by: Hayden Guthrie M.D. 04/27/2023 2:58 PM
--- NOTE | 2023-04-27 16:44 | Discharge Summary ---
Date of Service April 27, 2023 Admission HPI Per Admitting Provider Saturnino Tipton is a pleasant 62yo male presenting with left flank pain ongoing since 04/09/23. Patient has had constant pain in the left flank with radiation into the left testicle ranging 3-10/10 in severity. He has had intermittent nausea, vomiting and po intolerance as well. He has had kidney stones in the past and this feels similar. Patient contacted Urology with these complaints and had a KUB performed on 03/18 05/09 which revealed left sided nephrolithiasis - small and nonobstructing measuring up to 4mm. Patient's pain persisted and worsened. He contacted Urology again today and had a CT performed which revealed mild left hydronephrosis secondary to an obstructing 9x6mm distal left ureteral stone and bilateral nephrolithiasis. Patient presently feeling fairly comfortable. Pain 3/10. He denies fever but states that he gets chills and diaphoresis associated with the severe episodes of pain. He continues to have intermittent nausea but no recent vomiting. Additionally he reports some constipation ER Course: Zofran Toradol Flomax Morphine Admission Exam Per Admitting Provider General: patient resting comfortably, NAD, non-toxic in appearance, AA&O x 4 Skin: warm, dry, intact, no rashes or lesions HEENT: NC/AT, PERRL, EOMI, anicteric sclera, conjunctiva without injection, external ear normal to inspection and nontender, nares patent, slightly dry mucus membranes, dentition intact, no oropharyngeal lesions, neck supple, trachea midline, no LAD, no thyromegaly, no JVD Heart: +S1/S2, regular, no m/r/g Lungs: equal air entry bilaterally, no rales/rhonchi/wheezes Abd: +BS, soft, NT/ND, no masses/organomegaly/ascites, left flank pain Ext: warm, 2+ pulses in UE/LE bilaterally, no clubbing/cyanosis or edema Neuro: nonfocal, patient AA&O x 4, speech intact, no facial droop, moving all extremities on command with equal strength 5/5 Principal Diagnosis Left nephrolithiasis Discharge Exam Constitutional WD/WN, vitals as above Eyes + anicteric sclerae ENMT Ears: no external ear abnormality Nose: no external nose abnormality Moist mucous membranes Respiratory normal respiratory effort, lungs clear to auscultation Cardiovascular Rate/Rhythm: regular rate and regular rhythm Musculoskeletal Left CVA tenderness Skin no rashes, warm and dry Psychiatric A+Ox3, euthymic affect Discharge Data Allergies Allergy/AdvReac Type Severity Reaction Status Date / Time latex Allergy Mild see comment Verified 04/27/23 09:01 Penicillins Allergy Mild HIVES AND Unverified 04/27/23 09:01 SWELLING A CHILD Consultations 04/27/23 05:11 ED Decision to Admit Stat 04/27/23 07:22 Consult Urology Routine Procedures Performed Operation Date: 04/27/23 11:35 Actual Procedures p Cystoscopy, Left Stent Placement(Left) - Polo Bright MD Ordered Studies 04/27/23 13:00 FL KUB Routine Abdomen Fluoroscopy 04/27/23 13:00 FL KUB CLINICAL HISTORY: LT TECHNIQUE: 1 views were obtained with the C-arm in the OR with the above procedure. Total fluoroscopy time was 3.6 seconds. Radiation dose was 0.57 mGy. Comparison: Comparison is made to CT abdomen pelvis 04/26/2023 FINDINGS/IMPRESSION: Intraoperative images were obtained of left cystogram with stent placement. Please correlate with intraoperative fluoroscopy and operative report. ACT 112: Negative or not required by law. Electronically signed by: Hayden Guthrie M.D. 04/27/2023 2:58 PM Hospital Course (1) Renal colic on left side: (2) Ureterolithiasis: (3) VLADIMIR (acute kidney injury): (4) Left flank pain: Plan Saturnino Tipton is a 62 year-old male who presented with ongoing left flank pain, nausea and vomiting. Found to have mild left hydronephrosis secondary to an obstructing 9 x 6 mm distal left ureteral stone. Patient with mild VLADIMIR as well. Reports decreased oral intake. -Patient received hydration with IV fluids -Anti-nausea and pain control -Urology consulted, completed cystoscopy with left sided stent placement today -Patient preferred discharge home, will follow with urology -Flomax, Pyridium prescriptions sent at time of discharge VLADIMIR (acute kidney injury) Cr elevated to 1.79 from normal baseline of appx 1. UA with trace ketones. No evidence of infection. Electrolytes and metabolic panel otherwise unremarkable -Received IV fluids as above Total Time Total Time Spent Total Time Spent (In Minutes): . Discharge Plan Discharge Items Patient Disposition: Home - Self-Care Reason For Visit: LEFT FLANK PAIN Discharge Diagnosis: Left nephrolithiasis Condition on Discharge: Good Activity: Per Instructions section Non-emergency contact: Primary Care Provider and Urologist Call non-emergency contact if: you have any medication questions and your symptoms worsen Follow-up/Referrals: Polo Bright MD [Physician] - Geovani Churchill CRNP [Primary Care Provider] - Diet: Regular Addtl Attending Provider Instructions: You were admitted to the hospital for kidney stone, you were given IV fluids as well as pain and anti-nausea medications. You were treated with a stent placement and will need to follow up with urology. A discharge summary will be sent to your primary care physician to ensure continuity of care. Medications: * We sent a new medication called Flomax to your pharmacy. Take Flomax 0.4mg 1 capsule daily. * We also sent a prescription for Pyridium 200mg, can be take 3 times daily for up to 2 days for help with urinary discomfort. * We also sent a prescription for a small amount of Percocet to be taken as needed for pain. CALL 911 OR GO TO THE EMERGENCY DEPARTMENT if you experience any of the following: Sudden, severe abdominal pain or nausea/vomiting Severe chest pain, or chest pain that radiates (moves) to your jaw or arm Sudden, severe shortness of breath or difficulty breathing Thank you for allowing us to participate in your care. Pending Studies at Discharge: No Stand-Alone Forms: Anesthesia/Sedation, Adult, My [facility] [employer], Smoking Cessation Medications and DC Order Prescriptions: New tamsulosin 0.4 mg Capsule 0.4 mg PO HS 30 Days Qty: 30 0RF phenazopyridine [Pyridium] 200 mg tablet 200 mg PO TID Qty: 6 0RF oxycodone-acetaminophen [Endocet] 5-325 mg tablet 1 tab PO BID MDD 2 tablets PRN (Reason: pain (scale score 7-10)) Qty: 10 0RF Continued ibuprofen [Advil] 200 mg tablet 200 mg PO Q6H PRN (Reason: Pain) albuterol sulfate [Proventil HFA] 90 mcg/actuation HFA aerosol inhaler 2 puff inhalation Q6H PRN (Reason: shortness of breath or wheezing) Qty: 8.5 0RF tadalafil 20 mg tablet 20 mg PO DAILY PRN (Reason: Sexual Activity) Discharge Orders: Discharge Order (Routine); Ordered 04/27/23 Ordered By: Park Buckley/Other Patient Handouts: Having a Ureteral Stent Admission Data Admit Date/Time: 04/27/23 05:57 Attending Provider: Cristal Chen Admit Provider: Marysol Xie Primary Care Provider: Geovani Churchill Other Providers: Loc Canales ; Marysol Xie Supervising Physician Co-Signing Physician Notes I personally examined the patient and verified all de la cruz points of history and exam, discussed case, and agree with decision making and plan documented by Dr. Aly. Patient dressed and awaiting discharge on exam, pain stable. On exam patient appears comfortable, lungs clear bilaterally to auscultation, no rales/rhonchi/wheezing, heart with regular rate and rhythm, no murmur appreciated, bowel sounds present. Follow-up scheduled with urology. Resident Activity Tracking Resident Involvement: Resident Care Provided Care Provided: Adult Hospital Medicine
[2023-04-27] MEDS ORDERED: TAMSULOSIN HCL 0.4 MG CAP PO SCH (21:00)
== END 2023-04-27 15:40 | disposition home or self-care (01) ==
LOC: ED 03:58 → SUATTDRO 05:57 → INTOOBSV 05:57 → EDINP 05:57

== ENCOUNTER 2023-07-06 15:15 | Inpatient (IN) ==
--- NOTE | 2023-07-06 15:18 | ED Triage Note ---
Date of Service July 06, 2023 History of Present Illness This patient was briefly evaluated while in triage. An abbreviated physical exam was performed. This patient is a 63-year-old Male who presents to the ED for evaluation of SBO. PCP referred "back up here". Pt. was here Sunday night and "checked me out and sent me home." States he was diagnosed with a bowel obstruction on X-ray outpatient and PCP was unable to do direct admit so was referred back to the ED for admission for bowel obstruction. Physical Exam VITALS: Vitals are noted on the nurse's note and reviewed by myself. GENERAL: This is a 63 year old male, in no acute distress, nondiaphoretic, well- developed well-nourished. SKIN: No obvious rashes, edema, erythema HEAD: Normocephalic atraumatic. EYES: Conjunctivae without injection, sclerae without icterus. NECK: No JVD. LUNGS: No retractions or accessory muscle use. MUSCULOSKELETAL: Normal gait. NEURO: Patient was alert and oriented to person place and time. No focal neurological deficits. Initial orders for labs and / or imaging were placed and patient was placed in the waiting area until a bed is available. Please see further documentation for the full ED course.
--- NOTE | 2023-07-06 15:39 | Emergency Department Note ---
Impression & Plan Small bowel obstruction, Abdominal pain ED Provider Note CHIEF COMPLAINT: Small bowel obstruction HISTORY OF PRESENT ILLNESS: This 63-year-old male patient presents to the emergency department via private vehicle at the recommendation of his PCP. The patient was here 2 days ago at the recommendation of his PCP. The patient was here 3 days ago for abdominal pain. At that time, he had CT imaging which was negative. He was seen by his PCP as an outpatient today and there is concern for persistent abdominal pain and question ileus versus small bowel obstruction. Patient had outpatient KUB as well as outpatient labs. Outpatient x-ray was concerning for small bowel obstruction. The patient's PCP referred him to the emergency department when he was unable to direct admit him. The patient denies any fever. No nausea or vomiting. He did have some liquid stool earlier today, but nothing formed. REVIEW OF SYSTEMS: A 10 system review of systems was performed with positives and pertinent negatives listed in the history of present illness. All other systems were reviewed and are negative. ALLERGIES: Latex, penicillin PHYSICAL EXAM: VITALS: Vitals are noted on the nurse's note and reviewed by myself. Vital signs stable. GENERAL: This is a 63-year-old male, in no acute distress, nondiaphoretic, well- developed well-nourished. SKIN: The skin was without rashes, erythema, edema, or bruising. There is no tenting of the skin. Capillary refill less than 2 seconds. HEAD: Normocephalic atraumatic. EYES: Conjunctivae without injection, sclerae without icterus. NECK: Supple without nuchal rigidity. No lymphadenopathy. No JVD. LUNGS: No retractions or accessory muscle use. MUSCULOSKELETAL: No muscle atrophy, erythema, or edema noted. Full range of motion without joint tenderness in all extremities. No tenderness to palpation. Normal gait. Strength 5/5 throughout. NEURO: Patient was alert and oriented to person place and time. No focal neurological deficits. EMERGENCY DEPARTMENT COURSE: The patient was seen and evaluated as above. I did initially see the patient in triage. The patient was found as an outpatient to have a small bowel obstruction on x-ray. He was here in the emergency department earlier this week and had negative CT scan and labs completed at that time. It seems that his symptoms have progressed in that time. Given the history, I did reach out to the hospitalist. Dr. Hurley was aware of this patient and was just unable to direct admit him. IV access was obtained. Outpatient labs are pending. X-ray was reviewed. I discussed the case with Dr. Hurley. The [facility] hospitalist did see and evaluate the patient in triage for admission. Please see hospitalist dictation regarding ongoing management care of this patient. Differential diagnosis includes appendicitis, diverticulitis, obstruction, inf lammatory bowel disease, renal colic, PUD, biliary pathology, pancreatitis, mesenteric ischemia, aortic pathology, infections, genitourinary, UTI, perforated viscus, as well as others were entertained. I attest that I have personally reviewed the patient's current medication list. Patient was found to have normal blood pressure on screening and does not require follow-up. The chart was completed utilizing [employer] Speech voice recognition software. Grammatical errors, random word insertions, pronoun errors, and incomplete sentences are an occasional consequence of this system due to software limitations, ambient noise, and hardware issues. Any formal questions or concerns about the content, text, or information contained within the body of this dictation should be directly addressed to the provider for clarification. Past Med/Surg History Medical History Allergic rhinitis Asthma due to environmental allergies has never needed prn inhaler Chronic sinusitis Dyslipidemia no meds Erectile dysfunction Esophageal reflux History of COVID-19 09/2022- "flu like symptoms"; resolved Peyronie's disease Prediabetes A1c 5.8% 10/2022 Renal calculi monitoring Right inguinal hernia Surgical History H/O lithotripsy History of carpal tunnel surgery History of colonoscopy 01/2023 History of knee surgery right knee meniscus History of rotator cuff surgery Left History of shoulder surgery right decompression x2 Hx of shoulder surgery Right bicep repair Family History Mother Heart disease Asthma Brother Colorectal cancer Sister Colorectal cancer Aunt Heart disease Uncle Heart disease Social History Smoking Status: Never smoker Tobacco Type: Smokeless Tobacco (Dip or Chew) Second Hand Exposure: No; Do You Dip or Chew Tobacco: Yes (3 can/wk); Hx Alcohol Use: Yes Alcohol type: beer and wine Alcohol Intake Frequency Comment: occassionally Hx Substance Use: No Preferred Language: Albanian Communication Ability: Effective Visual Impairment: No Limitations Hearing Ability: Hard of Hearing Supervisory Lifeguard Required: No Beliefs That Will Affect Care: None marital status: Current Living Situation: Spouse current occupational status: employed Feels Safe at Home: Yes Childhood Exposure to Second-Hand Smoke: Yes Diet: regular caffeine: Yes during the past year weight has: remained stable Dental Care, Regularly: Yes Physical Activity Frequency: Daily Physical Activity Frequency Comment: active lifestyle Seatbelt Use: always Sunscreen Use: No Do you think of yourself as: straight/heterosexual Assistive Devices: Glasses Allergies Allergies Allergy/AdvReac Type Severity Reaction Status Date / Time latex Allergy Mild see comment Verified 07/06/23 12:51 Penicillins Allergy Mild HIVES AND Unverified 07/06/23 12:51 SWELLING A CHILD Home Meds Home Medications Medication Instructions Recorded Confirmed tadalafil 20 mg tablet 20 mg PO DAILY PRN Sexual Activity 04/27/23 07/06/23 Previous Rx's Medication Instructions Recorded albuterol sulfate 90 mcg/actuation 2 puff inhalation Q6H PRN 01/11/23 aerosol inhaler (Proventil HFA) shortness of breath or wheezing #8.5 grams dicyclomine 20 mg tablet 20 mg PO QID #20 tabs 07/04/23 ondansetron 4 mg disintegrating 4 mg PO Q6H PRN nausea and 07/04/23 tablet vomiting #14 tabs simethicone 125 mg chewable tablet 125 mg PO QID PRN abdominal 07/04/23 distention #30 tabs methocarbamol 750 mg tablet 750 mg PO TID PRN back spasm #15 07/06/23 tabs pantoprazole 40 mg tablet,delayed 40 mg PO DAILY #30 tabs 07/06/23 release sucralfate 1 gram tablet (Carafate) 1 g PO BID #14 tabs 07/06/23 Results & Data (ED) Vital Signs Vital Signs - 24 hr 07/06/23 15:17 07/06/23 16:40 Temperature 36.3 C L Temperature Source Temporal Artery Scan Pulse Rate 69 Pulse Rate [Bilateral] 62 Respiratory Rate 18 18 Respiratory Effort / Characteristics Non-Labored Respiratory Depth Normal Blood Pressure 121/84 Blood Pressure [Right Arm] 157/87 H Blood Pressure Mean 96 Blood Pressure Mean [Right Arm] 110 Pulse Oximetry 96 97 Oxygen Delivery Method Room Air Room Air Sepsis Recent Fever Within 48 Hours No Sepsis New/Unexplained Change in Mental Status No Sepsis Action Taken by Nursing No Action Required Laboratory Data Lab Results 07/06/23 Range/Units 17:42 Lactate 1.8 (0.4-2.0) mmol/L Administered Medications Discontinued Medications Acetaminophen (Ofirmev) 1,000 mg in 100 mls @ 400 mls/hr IV NOW STA Stop: 07/06/23 16:47 Last Infusion: 07/06/23 17:19 Dose: 0 mls/hr Documented By: Admin: 07/06/23 17:03 Dose: 400 mls/hr Documented By: TEE Pantoprazole Sodium 40 mg/ (Syringe) 10 mls @ 5 mls/min IV NOW ONE Stop: 07/06/23 16:34 Last Admin: 07/06/23 17:03 Dose: 5 mls/min Documented By: TEE Lactated Ringer's (Lr) 1,000 mls @ 999 mls/hr IV .Q1H1M ONE Stop: 07/06/23 17:35 Last Admin: 07/06/23 17:00 Dose: 999 mls/hr Documented By: TEE Imaging Data Radiologist's Impression: Chest X-Ray 07/06/23 16:52 SINGLE VIEW CHEST CLINICAL HISTORY: Substernal chest pain/epigastric abdominal pain FINDINGS: An AP, portable, upright chest radiograph is compared to study dated 07/03/2023. The cardiomediastinal silhouette is top normal for projection. Chronic interstitial thickening is previous. There is bibasilar scarring/atelectasis. No airspace consolidation or large pleural effusion is identified. No pneumothorax is seen. The skeletal structures are osteopenic. The bony thorax is grossly intact. There is gaseous distention of the bowel loops seen below the diaphragm. IMPRESSION: 1. No active disease in the chest. 2. There is gaseous distention of the bowel loops seen below the diaphragm. ACT 112: Negative or not required by law. Electronically signed by: Michael Montes De Oca M.D. 07/06/2023 5:42 PM Discharge Plan Visit Data Chief Complaint: GI Assessment Stated Complaint: BOWEL OBSTRUCTION,DOC REF ED Provider: Adrian Griffiths ED Midlevel Provider: Toyin Gonsalves Discharge Problem: Small bowel obstruction, Abdominal pain Forms Stand Alone Forms: My [facility] Prescriptions Prescriptions: No Action sucralfate [Carafate] 1 gram tablet 1 g PO BID Qty: 14 0RF pantoprazole 40 mg tablet,delayed release (DR/EC) 40 mg PO DAILY Qty: 30 2RF methocarbamol 750 mg tablet 750 mg PO TID PRN (Reason: back spasm) Qty: 15 0RF albuterol sulfate [Proventil HFA] 90 mcg/actuation HFA aerosol inhaler 2 puff inhalation Q6H PRN (Reason: shortness of breath or wheezing) Qty: 8.5 0RF dicyclomine 20 mg tablet 20 mg PO QID Qty: 20 0RF ondansetron 4 mg tablet,disintegrating 4 mg PO Q6H PRN (Reason: nausea and vomiting) Qty: 14 0RF simethicone 125 mg tablet,chewable 125 mg PO QID PRN (Reason: abdominal distention) Qty: 30 0RF tadalafil 20 mg tablet 20 mg PO DAILY PRN (Reason: Sexual Activity) Referrals Referrals: Geovani Churchill CRNP [Primary Care Provider] -
--- NOTE | 2023-07-06 15:57 | History & Physical Report ---
Date of Service July 06, 2023 Assessment & Plan (1) Small bowel obstruction: Plan: -Admit to med/surge -Currently stable with moderate abdominal pain at the time of admission -Noted to have SBO on outpatient KUB ordered by patient's PCP for ongoing abdominal discomfort/bloating -Was seen in the [facility] on 07/06 where workup was unremarkable, discharged with Bentyl, zorfran, and simethicone -The Bentyl may have exacerbated his symptoms due to it's antispasmodic effects -General Surgery consult placed, appreciate their assistance, they will evaluate in the near future, requesting repeat CT of the abd/pelvis with IV con and oral con if patient can tolerate >Will obtain CT with IV con only as I do not think he can tolerate oral con at this time -Keep NPO until evaluated by general surgery -Will place NG tube if patient's symptoms progress -Will give 1L LR bolus, 1gm IV tylenol on admission -Will obtain STAT lactate -Hold chemical DVT PPX at this time in case of need for surgery in the near future; BL SCD's for now Strict NPO -AM CBC, CMP, Mag, PT/INR, aPTT (2) Abdominal pain: Plan: -Likely multifactorial including acute SBO and exacerbation of patient's known reflux -Patient has been using NSAID's for musculoskeletal pain over the past week, symptoms are similar to typical GERD symptoms -Bowel rest, IV fluids -Will give a dose of IV pantoprazole and famotidine now -Will FU on ECG to ensure his discomfort is not cardiac in nature (3) Right inguinal hernia: Plan: -Does not appear strangulated at the time of my exam -Follow CT of the abd/pelvis w/IV con and gen surgery consult (4) Tobacco abuse: Plan: -Patient uses chewing tobacco -Not interested in nicotine patches at this time (5) Chronic back pain: Plan: -Tylenol, lidocaine patch, and heat to start Plan The patient was discussed with Dr. Hurley at the time of the admission History of Present Illness Chief Complaint: Abnormal outpatient imaging Primary Care Provider: SLOAN Hauser Saturnino is a 63 year old male with a PMH significant right inguinal hernia (planning to have repaired w/General Surgery, asthma, GERD, and dyslipidemia who presented to the [facility] ED at the recommendation of his PCP after an outpatient KUB was positive for small bowel obstruction. The patient has been experiencing abdominal bloating, pain, and constipation since 07/02. He was evaluated in the [facility] ED on 07/03. At that time the patient's workup included CBC, CMP, UA, and CT of the abd/pelvis w/IV con. His labs were unremarkable, CT was read as "Mild gaseous distention of the colon. No obstruction or overt inflammatory changes along the GI tract.". He was discharged home with prescriptions of Bentyl, ondansetron, and simethicone. At the time of the exam the patient was seen in one of the triage rooms due to high ED census, he was in no acute distress but was noted to be uncomfortable. History was obtained from the patient and his . They state that his symptoms started on 07/02. On 07/01 he had an accident when one of his horses knocked him to the ground, he landed on his right arm/side and denies hitting his head or losing consciousness. He states that he was first experi encing back spasms after the accident. On 07/02 he went to his Chiropractor who performed spine manipulation, greatly improving his back pain. Later in the day, on 07/02, the patient began to experience generalized abdominal discomfort and distention. He states that he did not have a bowel movement from 07/03 until 1230 this afternoon when he had an episode of non-bloody diarrhea. Since having the episode of diarrhea he states that he has not passed any gas, he has been belching frequently. He denies previous abdominal surgery and was evaluated in the General Surgery clinic on 05/31 due to worsening right inguinal hernia. Per their note, they plan on repairing the hernia in the near future. The patient states that he has had the inguinal hernia for years. It recently was exacerbated/enlarged while he was dealing with a kidney stone and had increased abdominal pressure while passing the stone. He denies increased pain/discomfort of the hernia recently. He notes epigastric abdominal pain with radiation up his throat. He states that this has been progressing since he has had multiple episodes of non-blood emesis over the past 72 hours. He does have a history of GERD and feels as though this discomfort is similar to his reflux. He uses chewing tobacco and denies frequent alcohol use. He was using ibuprofen over the past 48 hours to treat his back pain. He took 600 mg twice on 07/04, and took 400 mg q4h yesterday. He is a full code and wishes for his to make medical decisions for him if he cannot make them himself. Review of outpatient CBC and CMP ordered by the patient's PCP prior to patient's arrival today are unremarkable Please refer to Dr. Hurley's attestation for any changes to the treatment plan Allergies Allergy/AdvReac Type Severity Reaction Status Date / Time latex Allergy Mild see comment Verified 07/06/23 12:51 Penicillins Allergy Mild HIVES AND Unverified 07/06/23 12:51 SWELLING A CHILD Home Medications Medication Instructions Recorded Confirmed Type albuterol sulfate 90 mcg/actuation 2 puff inhalation Q6H PRN 01/11/23 07/06/23 Rx aerosol inhaler (Proventil HFA) shortness of breath or wheezing #8.5 grams tadalafil 20 mg tablet 20 mg PO DAILY PRN Sexual Activity 04/27/23 07/06/23 History dicyclomine 20 mg tablet 20 mg PO QID #20 tabs 07/04/23 07/06/23 Rx ondansetron 4 mg disintegrating 4 mg PO Q6H PRN nausea and 07/04/23 07/06/23 Rx tablet vomiting #14 tabs simethicone 125 mg chewable tablet 125 mg PO QID PRN abdominal 07/04/23 07/06/23 Rx distention #30 tabs methocarbamol 750 mg tablet 750 mg PO TID PRN back spasm #15 07/06/23 07/06/23 Rx tabs pantoprazole 40 mg tablet,delayed 40 mg PO DAILY #30 tabs 07/06/23 07/06/23 Rx release sucralfate 1 gram tablet (Carafate) 1 g PO BID #14 tabs 07/06/23 07/06/23 Rx Past Med/Surg History Medical History Allergic rhinitis Asthma due to environmental allergies has never needed prn inhaler Chronic sinusitis Dyslipidemia no meds Erectile dysfunction Esophageal reflux History of COVID-19 09/2022- "flu like symptoms"; resolved Peyronie's disease Prediabetes A1c 5.8% 10/2022 Renal calculi monitoring Right inguinal hernia Surgical History H/O lithotripsy History of carpal tunnel surgery History of colonoscopy 01/2023 History of knee surgery right knee meniscus History of rotator cuff surgery Left History of shoulder surgery right decompression x2 Hx of shoulder surgery Right bicep repair Family History Mother Heart disease Asthma Brother Colorectal cancer Sister Colorectal cancer Aunt Heart disease Uncle Heart disease Social History Smoking Status: Never smoker Tobacco Type: Smokeless Tobacco (Dip or Chew) Second Hand Exposure: No; Do You Dip or Chew Tobacco: Yes (3 can/wk); Hx Alcohol Use: Yes Alcohol type: beer and wine Alcohol Intake Frequency Comment: occassionally Hx Substance Use: No Preferred Language: Palestinian Communication Ability: Effective Visual Impairment: No Limitations Hearing Ability: Hard of Hearing Nurse Licensed Practical Required: No Beliefs That Will Affect Care: None marital status: Current Living Situation: Spouse current occupational status: employed Feels Safe at Home: Yes Childhood Exposure to Second-Hand Smoke: Yes Diet: regular caffeine: Yes during the past year weight has: remained stable Dental Care, Regularly: Yes Physical Activity Frequency: Daily Physical Activity Frequency Comment: active lifestyle Seatbelt Use: always Sunscreen Use: No Do you think of yourself as: straight/heterosexual Assistive Devices: Glasses Physical Exam Physical Exam: Physical Exam: General: In no acute distress, stated age, well-nourished, non-toxic appearing HEENT: Normocephalic, atraumatic, no scleral icterus, pupils around round, symmetrical, and reactive to light, dry mucus membranes, trachea midline, no thyromegaly Chest/Pulm: No respiratory distress, symmetrical chest expansion, clear breath sounds throughout Cardiac: RRR, no murmurs noted Abdomen: Negative for ascites and bruising, hypoactive bowel sounds, soft, tender to palpation in the BL lower abdominal kinsey with left > right, negative morris's sign : Right inguinal hernia noted on palpation of the right groin is minimally tender to palpation, no signs of active strangulation at this time Musculoskeletal: Symmetrical and without signs of acute trauma, upper and lower extremities with full ROM, no atrophy, spasticity, or flaccidity Extremities: Radial, dorsalis pedis, and posterior tibial pulses are intact and symmetrical, no edema noted in the BL LE's Skin: Warm, dry, no rashes , lesions, or scars noted Neuro: Alert and oriented to person, place, month, year, and president, no focal defects, no tremors noted Psych: No acute distress, calm and cooperative during the exam Results & Data Results & Data Vital Signs (Past 12 Hours) Vital Signs Temp Pulse Resp BP Pulse Ox O2 Del Method 07/06/23 15:17 36.3 C L 69 18 121/84 96 Room Air Diagnostic Findings KUB CLINICAL HISTORY: Generalized abdominal pain. FINDINGS: 2 AP standing abdominal radiographs are correlated with abdominal CT dated 07/03/2023. The small bowel loops are significant distended and gas- filled, measuring up to 4.5 cm. There are numerous air-fluid levels. There is a paucity of colonic gas and the appearance favors a small bowel obstruction. No evidence of intraperitoneal free air is seen below the diaphragm. There are no abnormal abdominal calcifications. The skeletal structures are osteopenic and appear intact. There is moderate lumbosacral spondylosis. IMPRESSION: 1. Findings are consistent with small bowel obstruction. 2. No evidence of intraperitoneal free air is seen below the diaphragm. Electronically signed by: Michael Montes De Oca M.D. 07/06/2023 1:59 PM Dictated:07/06/23 1357 Transcribed: 07/06/23 1357 ECG Additional Comments: Will obtain ECG at the time of the admission Code Status & VTE Plan Code Status Full code VTE Prophylaxis Plan VTE Prophylaxis will be ordered: Yes Supervising Physician Co-Signing Physician Notes Attending addendum: I have supervised the SHERIF's activities, and agree with the H&P unless as otherwise noted. Assessment and Plan: Small bowel obstruction- Initial assessment CT on ED visit on 07/03/2023 was negative for bowel obstruction Patient followed up with his outpatient PCP this afternoon due to worsening symptoms, and KUB ordered suggest small bowel obstruction. N.p.o. Follow-up CT with IV contrast Patient prefers no NG tube at this time Status post 1 L LR bolus in the ED and Tylenol 1 g IV given by the ED IV fluids as noted Pantoprazole 40 mg IV daily, with first dose now Patient has allergy to penicillins, place on Cipro and Flagyl IV for now Consult general surgery Right inguinal hernia- CT abdomen pelvis ordered to further assess SBO and inguinal hernia PG Care Time/CCT Total # of Minutes Spent Total Time Spent with Patient: Total time spent is greater than 50% in coordination of care (as documented) at patient's floor/unit and/or counseling patient: Coding [place] [address] INT INP/OBS CARE 2/55MIN Patient Type Established Medical Decision Making Moderate Complexity Diagnoses Small bowel obstruction K56.609 Abdominal pain R10.9 Right inguinal hernia K40.90 Tobacco abuse Z72.0 Chronic back pain M54.9; G89.29
[2023-07-06] MEDS ORDERED: PANTOprazole 40 MG in SYRINGE 0 ML IV ONE (16:33)
[2023-07-06] MEDS ORDERED: ACETAMINOPHEN 1,000 MG/100 ML VIAL IV STA (16:33)
[2023-07-06] MEDS ORDERED: LACTATED RINGER'S 1,000 ML IV ONE (16:35)
[2023-07-06] MEDS ORDERED: LIDOCAINE 5% 1 PATCH TD STA (17:01)
--- NOTE | 2023-07-06 17:44 | XRay Report ---
SINGLE VIEW CHEST CLINICAL HISTORY: Substernal chest pain/epigastric abdominal pain FINDINGS: An AP, portable, upright chest radiograph is compared to study dated 07/03/2023. The cardio mediastinal silhouette is top normal for projection. Chronic interstitial thickening is previous. The re is bibasilar scarring/atelectasis. No airspace consolidation or large pleural effusion is identifi ed. No pneumothorax is seen. The skeletal structures are osteopenic. The bony thorax is grossly intac t. There is gaseous distention of the bowel loops seen below the diaphragm. IMPRESSION: 1. No active disease in the chest. 2. There is gaseous distention of the bowel loops seen below the diaphragm. ACT 112: Negative or not required by law. Electronically signed by: Michael Montes De Oca M.D. 07/06/2023 5:42 PM
--- NOTE | 2023-07-06 18:06 | Billing Data ---
Date of Service July 06, 2023 Coding Level of Care Code 39006 INT INP/OBS CARE
[2023-07-06] MEDS: FAMOTIDINE 20 MG in SYRINGE 3 ML IV SCH (18:16)
[2023-07-06 18:23] LABS: INR 1.1 (0.9-1.1); Partial Thromboplastin Ratio 0.9; Prothrombin Time 12.2 Seconds (9.0-12.0)
[2023-07-06] MEDS ORDERED: OPTIRAY 320 100ml IV ONE (18:35)
[2023-07-06] MEDS ORDERED: ONDANSETRON INJ 2 MG/ML 2 ML VIAL IV PRN (18:53)
--- NOTE | 2023-07-06 19:08 | CT Scan Report ---
CT SCAN OF THE ABDOMEN AND PELVIS WITH IV CONTRAST CLINICAL HISTORY: Generalized abdominal pain. Small bowel obstruction seen by x-ray. COMPARISON STUDY: Abdominal CT dated 07/03/2023. Abdominal radiograph dated 07/06/2023. TECHNIQUE: Following the IV administration of 90 cc of Optiray 320, CT scan of the abdomen and pelvi s is performed from the lung bases to the proximal femora. Images are reviewed in the axial, sagittal , and coronal planes. IV contrast was administered without complication. A dose lowering technique wa s utilized adhering to the principles of ALARA. CT DOSE: 932.96 mGy.cm FINDINGS: Lung bases: The heart is normal in size and without pericardial effusion. The coronary arteries are d ensely calcified. There is bibasilar scarring/atelectasis. No airspace consolidation or pleural effus ion is identified. Gynecomastia is noted. Liver: The contrast-enhanced liver is normal in size, contour, and attenuation. There is no intrahepa tic biliary ductal dilatation. The hepatic veins and portal veins are patent. Gallbladder: Unremarkable. Spleen: Normal in size and attenuation. Pancreas: Unremarkable. Adrenal glands: Unremarkable. Kidneys: The contrast enhanced kidneys are normal in size and without hydronephrosis. The kidneys enh ance symmetrically. Small bilateral nonobstructing renal calculi measure up to 3 mm. Abdominal vasculature: The abdominal aorta is normal in course and caliber noting mild atheroscleroti c calcification. Bowel: There are slightly distended loops of mid to distal small bowel in the lower abdomen and pelvi s which measure up to 4 cm diameter. These show air-fluid levels and there is associated interloop fl uid. There is a sharp proximal transition point with mild shouldering suggested on image #220. The pr oximal small bowel is decompressed. The terminal ileum is also relatively decompressed as seen on audi ge #[id number]. The colon is relatively decompressed. There is moderate sigmoid diverticulosis without CT ev idence of acute diverticulitis The appendix is well-visualized and normal. Peritoneum: There is trace ascites. Paracolic gutter and pelvis. No tracheal free air is seen. Lymphadenopathy: None. Pelvic viscera: The bladder, prostate, and seminal vesicles are normal as visualized. there are bilat eral fat-containing inguinal hernias, right larger than left. Infiltration within the right inguinal hernia is new from previous. Surgical clips are noted along the spermatic cord bilaterally. Skeletal structures: The skeletal structures are osteopenic. There is moderate lumbosacral spondylosi s. No lytic or blastic lesions are seen. IMPRESSION: 1. The mid to distal small bowel is significantly distended and fluid-filled with air-fluid levels an d interloop fluid. The appearance favors obstruction over ileus; however, a discrete distal transitio n point is not identified. The terminal ileum and colon are relatively decompressed. Clinical correla tion will be essential. 2. There are bilateral fat-containing inguinal hernias, right larger than left. Infiltration within t he right inguinal hernia is new from previous. This could potentially represent a site of obstruction with spontaneous reduction. This must be correlated clinically. 3. There is a sharp proximal transition point seen in the left mid abdomen with apparent shouldering. The small bowel above this point is decompressed. This is of indeterminate significance. The shoulde red appearance raises suspicion for underlying mucosal lesion of the small bowel. This difficult to a ssess by CT. GI follow-up is recommended, as is a follow-up abdominal CT with oral and IV contrast wh enever the patient is clinically able. Capsule endoscopy could also potentially be considered. 4. Small volume abdominopelvic ascites. 5. No intraperitoneal free air is seen. 6. Bilateral nephrolithiasis. 7. Additional findings as above. ACT 112: Negative or not required by law. Electronically signed by: Michael Montes De Oca M.D. 07/06/2023 7:06 PM
[2023-07-06] MEDS ORDERED: MoRPHine SULFATE 2 MG/ML CARP IV PRN (19:43)
[2023-07-06] MEDS ORDERED: ACETAMINOPHEN 1,000 MG/100 ML VIAL IV PRN (19:43)
[2023-07-06] MEDS: metroNIDAZOLE 500 MG/100 ML BAG IV SCH (19:51)
[2023-07-06] MEDS: CIPROFLOXACIN / D5W 400 MG/200 ML BAG IV SCH (20:31)
[2023-07-06] MEDS: LACTATED RINGER'S 1,000 ML IV SCH (20:31)
--- NOTE | 2023-07-06 21:45 | Surgery Consultation ---
Date of Consultation July 06, 2023 Assessment & Plan (1) Small bowel obstruction: The patient has been admitted on the hospitalist service. From a surgical perspective we recommend proceeding as follows: Provide IV fluid for hydration Provide antiemetics N.p.o. status has been implemented which I would recommend maintaining for this evening. If patient continues to pass flatus and does not have any worsening of his clinical abdominal exam consideration be given to advancing the patient to clear liquids tomorrow. I did discuss with the patient that if he does have any worsening of his clinical scenario he may require NG tube for gastric decompression but I not feel this is needed at this time Concerning the area of irregularity in the patient's small bowel, it is unclear if this is contributing to his current presentation and further evaluation may be warranted. Further evaluation may include modalities such as a repeat CT scan with oral and IV contrast and/or capsule endoscopy as suggested by the radiologist interpreting his previous CT scan Concerning the patient's inguinal hernias, there does not appear to be any obstruction on CT scan from these hernias. Clinically the patient does not have any evidence of a incarcerated or strangulated inguinal hernia on the right or l eft. For the present time we will recommend that the patient maintains his plans for elective inguinal hernia repair with Dr. Tran on 07/24/2023 Additional recommendations be forthcoming based on his clinical course as unfolds History of Present Illness Reason for Consultation: Small bowel obstruction Attending Physician: Sivakumar Hurley MD History of Present Illness This is a 63-year-old male who presented to the emergency department secondary to abdominal pain. Patient notes that his issues began on 07/03/2023 when he was evaluated in the emergency department at [facility]. At that time the patient noted that he had had ongoing abdominal pain and bloating with associated nausea and vomiting for 24 hours prior to his visit. This happened after the patient fell when he was attempting to guide a horse into a stable. When the patient fell he did report some spasms in the lumbar region and he ultimately saw a chiropractor before his evaluation in the emergency department. Chiropractic manipulation did help the patient's lumbar spasms but he subsequently began to have the abdominal pain noted above. During this emergency department visit the patient did have imaging which I independently reviewed. A CT scan of the abdomen pelvis was performed which showed some gaseous distention of the colon with no evidence of obstruction. The patient also had labs on this date including a CBC were white blood cell count and hemoglobin were normal. His hematocrit was slightly low at 40.6. His platelet count was normal. Chemistry profile at this time showed sodium and potassium along with the BUN and creatinine were normal. He did not have any elevation of his LFTs at that time. Concerning the patient's history it is also noteworthy to mention that he is known to have a right inguinal hernia and he was seen by Dr. Dm Tran of [facility] general surgery on 05/31/2023. Plans were in place for patient to have an elective inguinal herniorrhaphy and the patient notes that this was scheduled for July 24 of this year. The patient notes that he was continuing to have abdominal pain so he saw his primary care team today who ordered a KUB. This was performed as an outpatient and this showed findings concerning for small bowel obstruction. There is no intraperitoneal free air noted on this study. Because of the findings on the KUB he was referred to the emergency department. I did visit with the patient at the bedside and he notes that he has been having ongoing abdominal pain over the past 4 days. He is having on and off lower abdominal cramping along with some epigastric pain that seems to be worse every time he eats or drinks something. He was previously having nausea and vomiting which has resolved. He also notes that he did have a bowel movement earlier today at approximately 11:00 AM that he describes as nearly completely liquid. Since arrival to the hospital the patient has not had any further emesis and he notes that he has been passing some flatus. Since arrival to the emergency department the patient has had labs and imaging which I independently reviewed. The patient did have a chest x-ray that showed no active disease in the chest. Gaseous distention of bowel loops were noted below the diaphragm on the study. Patient did have a CT scan of the abdomen pelvis. The patient was noted to have findings concerning for a small bowel obstruction however a discrete distal transition point was unable to be identified. Patient was noted to have bilateral fat-containing inguinal hernias. There was some infiltration of the right inguinal hernia which was suggestive of a potential previous obstruction that had spontaneously reduced. Although a distal transition point was not noted, there was a sharp proximal transition point in the left mid abdomen with some shouldering. This raises a concern for an underlying mucosal lesion of the small bowel. No intraperitoneal free air was noted on the CT scan. Labs included a CBC were white blood cell count was normal. Hemoglobin and hematocrit were 13.9 and 40.3. Platelet count was normal. Chemistry profile showed sodium and potassium along with BUN and c reatinine were normal. Lactic acid level was checked which was nonelevated at 1.8. There is no elevation of patient's LFTs. At the time of my interview the patient was resting comfortably in bed he was in no distress. Allergies Allergy/AdvReac Type Severity Reaction Status Date / Time latex Allergy Mild see comment Verified 07/06/23 12:51 Penicillins Allergy Mild HIVES AND Unverified 07/06/23 12:51 SWELLING A CHILD Home Medications Medication Instructions Recorded Confirmed Type albuterol sulfate 90 mcg/actuation 2 puff inhalation Q6H PRN 01/11/23 07/06/23 Rx aerosol inhaler (Proventil HFA) shortness of breath or wheezing #8.5 grams tadalafil 20 mg tablet 20 mg PO DAILY PRN Sexual Activity 04/27/23 07/06/23 History dicyclomine 20 mg tablet 20 mg PO QID #20 tabs 07/04/23 07/06/23 Rx ondansetron 4 mg disintegrating 4 mg PO Q6H PRN nausea and 07/04/23 07/06/23 Rx tablet vomiting #14 tabs simethicone 125 mg chewable tablet 125 mg PO QID PRN abdominal 07/04/23 07/06/23 Rx distention #30 tabs methocarbamol 750 mg tablet 750 mg PO TID PRN back spasm #15 07/06/23 07/06/23 Rx tabs pantoprazole 40 mg tablet,delayed 40 mg PO DAILY #30 tabs 07/06/23 07/06/23 Rx release sucralfate 1 gram tablet (Carafate) 1 g PO BID #14 tabs 07/06/23 07/06/23 Rx Patient History Medical History Allergic rhinitis Asthma due to environmental allergies has never needed prn inhaler Chronic sinusitis Dyslipidemia no meds Erectile dysfunction Esophageal reflux History of COVID-19 09/2022- "flu like symptoms"; resolved Peyronie's disease Prediabetes A1c 5.8% 10/2022 Renal calculi monitoring Right inguinal hernia Surgical History H/O lithotripsy History of carpal tunnel surgery History of colonoscopy 01/2023 History of knee surgery right knee meniscus History of rotator cuff surgery Left History of shoulder surgery right decompression x2 Hx of shoulder surgery Right bicep repair Family History Mother Heart disease Asthma Brother Colorectal cancer Sister Colorectal cancer Aunt Heart disease Uncle Heart disease Social History Smoking Status: Never smoker Tobacco Type: Smokeless Tobacco (Dip or Chew) Second Hand Exposure: No; Do You Dip or Chew Tobacco: Yes (3 can/wk); Hx Alcohol Use: Yes Alcohol type: beer Alcohol Intake Frequency Comment: occassionally Hx Substance Use: No Preferred Language: Latvian Communication Ability: Effective Visual Impairment: No Limitations Hearing Ability: Hard of Hearing Admin Asst Required: No Beliefs That Will Affect Care: None marital status: Current Living Situation: Spouse current occupational status: employed Feels Safe at Home: Yes Safety Concerns: Feels Safe At This Time Childhood Exposure to Second-Hand Smoke: Yes Diet: regular caffeine: Yes during the past year weight has: remained stable Dental Care, Regularly: Yes Physical Activity Frequency: Daily Physical Activity Frequency Comment: active lifestyle Seatbelt Use: always Sunscreen Use: No Do you think of yourself as: straight/heterosexual Assistive Devices: Glasses Review of Systems Constitutional: no fever and no chills Ear, Nose, Mouth, Throat: no hearing loss Respiratory: no cough and no dyspnea Cardiovascular: no chest pain Gastrointestinal: as per Subjective / HPI Genitourinary: no dysuria Musculoskeletal: no back pain Integumentary: no rash Neurologic: no localized weakness Physical Exam Constitutional: WD/WN, vitals as above Eyes: no conjunctival abnormality ENMT: Ears: no hearing impairment and no external ear abnormality Mouth: no oropharynx abnormality Neck: trachea midline Respiratory: normal respiratory effort, lungs clear to auscultation Cardiovascular: Rate/Rhythm: regular rate and regular rhythm Gastrointestinal (Abdomen): At the time of my exam the abdomen was noted to be minimally distended. It is soft and nonrigid. Bowel sounds are present. There is no tympany to percussion. There is no pain with palpation. There is no rebound tenderness or guarding. I did palpation the patient's groin and he was noted to have a right inguinal hernia which was noted to bulge when patient coughed forcefully. I did not appreciate any inguinal hernias on the left. In the right groin there were no overlying skin changes or erythema and the area was nontender to palpation. I did not appreciate any hard masses. Musculoskeletal: No calf tenderness Skin: no rashes Neurologic: moves all extremities Psychiatric: A+Ox3, euthymic affect Results & Data Vital Signs (Past 12 Hours) Vital Signs Temp Pulse Pulse Resp BP BP Pulse Ox 07/06/23 19:22 07/06/23 19:21 37.3 C 58 L 16 175/76 H 97 07/06/23 18:21 64 18 152/94 H 95 07/06/23 16:40 62 18 157/87 H 97 07/06/23 15:17 36.3 C L 69 18 121/84 96 O2 Del Method 07/06/23 19:22 Room Air 07/06/23 19:21 Room Air 07/06/23 18:21 Room Air 07/06/23 16:40 Room Air 07/06/23 15:17 Room Air PG Care Time/CCT Total # of Minutes Spent Total Time Spent with Patient: Total time spent is greater than 50% in coordination of care (as documented) at patient's floor/unit and/or counseling patient: Coding Level of Care Code 16109 IN/OBS CONSULT LVL 5,80M Diagnoses Small bowel obstruction K56.609
[2023-07-07] MEDS: metroNIDAZOLE 500 MG/100 ML BAG IV SCH ×3 (04:43→20:44)
[2023-07-07 05:00] LABS: Appearance Urine Clear (Clear); Bilirubin Urine Negative (Negative); Blood Urine Negative (Negative); Color Urine Yellow; Glucose Urine UA Negative (Negative); Ketones Urine 1+ (Negative); Leukocyte Esterase Urine Negative (Negative); Nitrite Urine Negative (Negative); Protein Urine Negative (Negative); Specific Gravity Urine > 1.045 (1.000-1.030); Urobilinogen Urine Negative (Negative)
--- NOTE | 2023-07-07 05:33 | Surgery Progress Note ---
Date of Service July 07, 2023 Assessment & Plan (1) Small bowel obstruction: Plan: The patient has been admitted on the hospitalist service. From a surgical perspective we recommend continuing care as follows: Continue IV fluid for hydration until oral intake can be advanced and is considered adequate Continue antiemetics Maintain n.p.o. status for the present time. If patient continues to progress well we will consider advancing diet today beginning with clear liquids Check a.m. labs when available As noted, the patient had an area of irregularity in the patient's small bowel, of unclear etiology. It is uncertain if this is contributing to his current presentation and further evaluation may be warranted. Further evaluation may include modalities such as a repeat CT scan with oral and IV contrast and/or capsule endoscopy as suggested by the radiologist interpreting his previous CT scan Concerning the patient's inguinal hernias, there does not appear to be any obstruction on CT scan from these hernias. Clinically the patient does not have any evidence of a incarcerated or strangulated inguinal hernia on the right or left. For the present time we will recommend that the patient maintains his plans for elective inguinal hernia repair with Dr. Tran on 07/24/2023 Additional recommendations be forthcoming based on his clinical course as unfolds Admission and Anticipated Discharge Date Admission Date: July 06, 2023 Supervising Physician Co-Signing Physician Notes pnt S&E, agree with above. admitted with partial sbo vs. ileus, also poss small bowel mucosal lesion. passing flauts, still sore and mildly bloated but feels much better. abd soft, mildly distended but improved, minimally ttp. if doing well this afternoon, may advance to clears. suspect this is more ileus from recent fall. at some point needs further evaluation for small bowel lesion, he discussed with GI this morning. surgery will follow. Subjective Patient is resting comfortably in bed. Since admission to the hospital in my most recent visit with the patient he continues to pass flatus. He denies any nausea or vomiting. He denies any worsening abdominal pain. Physical Exam Gastrointestinal (Abdomen): This morning the patient's abdomen appears less distended than what was noted at the time of my exam last night. Bowel sounds are present. Patient has minimal pain with palpation. There is no rebound tenderness or guarding. Results & Data Vital Signs (Past 12 Hours) Vital Signs Temp Pulse Resp BP Pulse Ox O2 Del Method 07/06/23 19:22 Room Air 07/06/23 19:21 37.3 C 58 L 16 175/76 H 97 Room Air 07/06/23 18:21 64 18 152/94 H 95 Room Air PG Care Time/CCT Total # of Minutes Spent Total Time Spent with Patient: Total time spent is greater than 50% in coordination of care (as documented) at patient's floor/unit and/or counseling patient: Coding Level of Care Code 78174 SUB INP/OBS CARE 10/11MIN Diagnoses Small bowel obstruction K56.609
[2023-07-07 06:42] LABS: Basophils # (auto) 0.05 K/uL (0.00-0.20); Basophils % (auto) 0.7 %; Eosinophils # (auto) 0.21 K/uL (0.00-0.50); Eosinophils % (auto) 2.9 %; Hematocrit (blood only) 36.3 % (42.0-52.0); Hemoglobin 12.6 g/dl (14.0-18.0); Immature Granulocytes # (auto) 0.04 K/uL (0.01-0.20); Immature Granulocytes % (auto) 0.6 %; Lymphocytes # (auto) 1.83 K/uL (1.20-3.40); Lymphocytes % (auto) 25.2 %; Mean Corpuscular Hemoglobin 31.3 pg (25.0-34.0); Mean Corpuscular Hgb Conc 34.7 g/dL (32.0-36.0); Mean Corpuscular Volume 90.1 fL (80.0-100.0); Mean Platelet Volume 10.1 fL (9.4-12.4); Monocytes # (auto) 0.79 K/uL (0.11-0.59); Monocytes % (auto) 10.9 %; Neutrophils # (auto) 4.35 K/uL (1.40-6.50); Neutrophils % (auto) 59.7 %; Platelet Count 173 K/uL (130-400); RDW Coefficient of Variation 12.3 % (11.5-14.5); RDW Standard Deviation 40.7 fL (36.4-46.3); Red Blood Count 4.03 M/uL (4.70-6.10); White Blood Count 7.27 K/ul (4.8-10.8)
[2023-07-07 07:12] LABS: Albumin Globulin Ratio 1.7 (0.9-2); Albumin Level 3.8 gm/dl (3.4-5.0); BUN Creatinine Ratio 16.1 (10-20); Bilirubin,Total 0.8 mg/dl (0.2-1.0); Calcium 8.7 mg/dl (8.6-10.3); Creatinine Clr Calc Pharmacy 83.4 ml/min; Est GFR (African American) 102.3 ml/min; Est GFR (Non-African American) 88.3 ml/min; Globulin 2.3 gm/dl (2.5-4.0); Potassium 3.5 mmol/L (3.5-5.1); Total Protein 6.1 gm/dl (6.0-8.3)
--- NOTE | 2023-07-07 07:34 | Electrocardiogram Report ---
Test Reason : Blood Pressure : / mmHG Vent. Rate : 063 BPM Atrial Rate : 063 BPM P-R Int : 138 ms QRS Dur : 096 ms QT Int : 428 ms P-R-T Axes : 054 002 005 degrees QTc Int : 437 ms Normal sinus rhythm Normal ECG When compared with ECG of 03-JUL-2023 19:57, Inverted T waves have replaced nonspecific T wave abnormality in Inferior leads QT has lengthened Confirmed by Tomer Esparza ([id number]) on 07/07/2023 7:34:23 AM Referred By: REFERRED SELF Confirmed By:Tomer Esparza
[2023-07-07] MEDS: LACTATED RINGER'S 1,000 ML IV SCH (08:07)
[2023-07-07] MEDS: CIPROFLOXACIN / D5W 400 MG/200 ML BAG IV SCH ×2 (08:09→19:16)
[2023-07-07] MEDS: FAMOTIDINE 20 MG in SYRINGE 3 ML IV SCH (08:13)
--- NOTE | 2023-07-07 08:26 | Hospitalist Progress Note ---
Date of Service July 07, 2023 Assessment & Plan (1) Small bowel obstruction: Plan: Admitted w/ moderate abdominal pain at the time of admission , noted to have SBO on outpatient KUB ordered by patient's PCP for ongoing abdominal discomfort/bloating. Was seen in the [facility] ED on 07/06 where workup was unremarkable, discharged with Bentyl, zorfran, and simethicone Bentyl may have exacerbated his symptoms due to it's antispasmodic effects General Surgery consult placed Lactic 1.8 CT Abd/pelvis w/ IV contrast obtained * The mid to distal small bowel is significantly distended and fluid-filled with air-fluid levels and interloop fluid. The appearance favors obstruction over ileus; however, a discrete distal transition point is not identified. The terminal ileum and colon are relatively decompressed. Clinical correlation will be essential. * There are bilateral fat-containing inguinal hernias, right larger than left. Infiltration within the right inguinal hernia is new from previous. This could potentially represent a site of obstruction with spontaneous reduction. This must be correlated clinically. * There is a sharp proximal transition point seen in the left mid abdomen with apparent shouldering. The small bowel above this point is decompressed. This is of indeterminate significance. The shouldered appearance raises suspicion for underlying mucosal lesion of the small bowel. This difficult to assess by CT. GI follow-up is recommended, as is a follow-up abdominal CT with oral and IV contrast whenever the patient is clinically able. Capsule endoscopy could also potentially be considered. No need for NGT at present IV abx: Cipro/Flagyl for now empirically ordered on admission IVF, extended Protonix IVP daily added, consider BID GI consulted, seen by [facility] in the past -Had c-scope earlier this year w/ Case 01/29/23 - path w/ serrated polyp with features of a sessile serrated adenoma/sessile serrated polyp is seen, no dysplasia or carcinoma seen ?Repeating CTAP w/ IV/Oral while inpatient -- discussed w/ surgery and can be done outpatient if progressing well passing gas since last night, pain /10, wanting to eat if possible Discussed w/ surgery, felt ok for clear liquids later today -- ordered Pain control/antiemetics prn SCDs Monitor on repeat eval (2) Chronic back pain: Plan: -Tylenol, lidocaine patch, and heat to start morphine available prn ACUTE ON CHRONIC Also notes his pain started worsening AFTER HE WAS THROWN FROM a horse on Sunday, reporting significant BACK PAIN. Had been seen outpatient by chiropractor recently --> obtaining xray lumbar/thoracic and pelvis/L hip imaging to eval for fracture. Strength testing is intact at present can consult orthotics for brace/consider having Dr Sheth review imaging if not stable w/ pain control Will consult PT/OT (3) Abdominal pain: Plan: Likely multifactorial including acute SBO and exacerbation of patient's known reflux Patient has been using NSAID's for musculoskeletal pain over the past week, symptoms are similar to typical GERD symptoms Bowel rest, IV fluids Will give a dose of IV pantoprazole and famotidine now --> scheduled daily pepcid, but on protonix at home -- ordered IVP daily protonix while npo Of note, patient w/ b/l nephrolithiasis -- has had 9x6mm distal L ureteral stone on imaging from April and underwent lithotripsy w/ notes from urology reporting increased discomfort from his R inguinal hernia since dealing w/ his stone issues No large obstructing stones noted on current imaging. reports pain not like stone pain in past (4) Right inguinal hernia: Plan: Does not appear strangulated at the time of my exam -Follow CT of the abd/pelvis w/IV con and gen surgery consult --> f/u with surgery outpatient in Jul for discussion for surgery. (5) Tobacco abuse: Plan: -Patient uses chewing tobacco -Not interested in nicotine patches at this time (6) Vitamin D deficiency: Plan continued inpatient stay imaging for back given acute trauma reported, pain control. will consult PT clear liquid diet for supper as long as continues to pass gas/feeling ok Admission and Anticipated Discharge Date Admission Date: July 06, 2023 Subjective Eval this morning, doing alright. Pain to abdomen about a 3/10, passing gas since last night. Per surgery, ok for some clears later today if continues to pass gas. Patient main complaint is 7-8/10 back pain, heating pad in place. Reports being thrown off horse this past Sunday, had been going to chiropractor. No loss of sensation bowel/bladder. Back pain spanning across lower back in thoracic/lumbar region, also tender to L posterior hip. Discussed will obtain xrays for further eval. No fever/chills. Questions/concerns addressed at this time. Physical Exam Physical Exam: General: 63yo male sitting up in bed, NAD but reporting mildly uncomfortable to back HEENT: head normocephalic, atraumatic, +facial hair, trachea midline Resp; CTA, no w/c/r, on room air CV: regular/cullen, no significant m/r/g, no pitting edema/calf tenderness GI:+BS, slightly hypoactive but present in all 4quadrants, slight distension, minimally tender, no guarding/rebound R inguinal hernia, no strangulation MSK/Neuro: tenderness to palpation thoracic/lumbar spine, L posterior hip, strength to LE w/ dorsiflexion/plantarflexion intact, pulses palpable Psych: AOx3 Results & Data Results & Data Vital Signs (Past 12 Hours) Vital Signs Temp Pulse Resp BP Pulse Ox O2 Del Method 07/07/23 07:15 37 C 54 L 16 138/82 95 Room Air Laboratory Results 07/07/23 07/07/23 07/07/23 Range/Units 05:54 05:54 04:50 WBC 7.27 (4.8-10.8) K/ul RBC 4.03 L (4.70-6.10) M/uL Hgb 12.6 L (14.0-18.0) g/dl Hct 36.3 L (42.0-52.0) % MCV 90.1 (80.0-100.0) fL MCH 31.3 (25.0-34.0) pg MCHC 34.7 (32.0-36.0) g/dL RDW Std Deviation 40.7 (36.4-46.3) fL RDW Coeff of [place] 12.3 (11.5-14.5) % Plt Count 173 (130-400) K/uL MPV 10.1 (9.4-12.4) fL Immature Gran % (Auto) 0.6 % Neut % (Auto) 59.7 % Lymph % (Auto) 25.2 % [place] % (Auto) 10.9 % Eos % (Auto) 2.9 % Baso % (Auto) 0.7 % Neut # (Auto) 4.35 (1.40-6.50) K/uL Lymph # (Auto) 1.83 (1.20-3.40) K/uL [place] # (Auto) 0.79 H (0.11-0.59) K/uL Eos # (Auto) 0.21 (0.00-0.50) K/uL Baso # (Auto) 0.05 (0.00-0.20) K/uL Immature Gran # (Auto) 0.04 (0.01-0.20) K/uL PT (9.0-12.0) Seconds INR (0.9-1.1) APTT (21.0-31.0) Seconds PTT Ratio Sodium 135 L (136-145) mmol/L Potassium 3.5 (3.5-5.1) mmol/L Chloride 100 (98-107) mmol/L Carbon Dioxide 28 (21-32) mmol/L Anion Gap 7 (3-11) BUN 15 (6-23) mg/dl Creatinine 0.93 (0.6-1.4) mg/dl Est Cr Clr Drug Dosing 83.4 ml/min Est GFR ( Amer) 102.3 ml/min Est GFR (Non-Af Amer) 88.3 ml/min BUN/Creatinine Ratio 16.1 (10-20) Glucose 80 (70-99(Fasting)) mg/dl Lactate (0.4-2.0) mmol/L Calcium 8.7 (8.6-10.3) mg/dl Magnesium 2.0 (1.7-2.4) mg/dl Total Bilirubin 0.8 (0.2-1.0) mg/dl AST 13 (13-39) U/L ALT 10 (7-52) U/L Alkaline Phosphatase 58 (34-104) U/L Total Protein 6.1 (6.0-8.3) gm/dl Albumin 3.8 (3.4-5.0) gm/dl Globulin 2.3 L (2.5-4.0) gm/dl Albumin/Globulin Ratio 1.7 (0.9-2) Urine Color Yellow Urine Appearance Clear (Clear) Urine pH 6.0 (4.5-7.5) Ur Specific [place] > 1.045 H (1.000-1.030) Urine Protein Negative (Negative) Urine Glucose (UA) Negative (Negative) Urine Ketones 1+ H (Negative) Urine Blood Negative (Negative) Urine Nitrite Negative (Negative) Urine Bilirubin Negative (Negative) Urine Urobilinogen Negative (Negative) Ur Leukocyte Esterase Negative (Negative) 07/06/23 07/06/23 Range/Units 17:42 17:42 WBC (4.8-10.8) K/ul RBC (4.70-6.10) M/uL Hgb (14.0-18.0) g/dl Hct (42.0-52.0) % MCV (80.0-100.0) fL MCH (25.0-34.0) pg MCHC (32.0-36.0) g/dL RDW Std Deviation (36.4-46.3) fL RDW Coeff of [place] (11.5-14.5) % Plt Count (130-400) K/uL MPV (9.4-12.4) fL Immature Gran % (Auto) % Neut % (Auto) % Lymph % (Auto) % [place] % (Auto) % Eos % (Auto) % Baso % (Auto) % Neut # (Auto) (1.40-6.50) K/uL Lymph # (Auto) (1.20-3.40) K/uL [place] # (Auto) (0.11-0.59) K/uL Eos # (Auto) (0.00-0.50) K/uL Baso # (Auto) (0.00-0.20) K/uL Immature Gran # (Auto) (0.01-0.20) K/uL PT 12.2 H (9.0-12.0) Seconds INR 1.1 (0.9-1.1) APTT 25.0 (21.0-31.0) Seconds PTT Ratio 0.9 Sodium (136-145) mmol/L Potassium (3.5-5.1) mmol/L Chloride (98-107) mmol/L Carbon Dioxide (21-32) mmol/L Anion Gap (3-11) BUN (6-23) mg/dl Creatinine (0.6-1.4) mg/dl Est Cr Clr Drug Dosing ml/min Est GFR ( Amer) ml/min Est GFR (Non-Af Amer) ml/min BUN/Creatinine Ratio (10-20) Glucose (70-99(Fasting)) mg/dl Lactate 1.8 (0.4-2.0) mmol/L Calcium (8.6-10.3) mg/dl Magnesium (1.7-2.4) mg/dl Total Bilirubin (0.2-1.0) mg/dl AST (13-39) U/L ALT (7-52) U/L Alkaline Phosphatase (34-104) U/L Total Protein (6.0-8.3) gm/dl Albumin (3.4-5.0) gm/dl Globulin (2.5-4.0) gm/dl Albumin/Globulin Ratio (0.9-2) Urine Color Urine Appearance (Clear) Urine pH (4.5-7.5) Ur Specific [place] (1.000-1.030) Urine Protein (Negative) Urine Glucose (UA) (Negative) Urine Ketones (Negative) Urine Blood (Negative) Urine Nitrite (Negative) Urine Bilirubin (Negative) Urine Urobilinogen (Negative) Ur Leukocyte Esterase (Negative) Diagnostic Findings Abdomen/Pelvis CT 07/06/23 16:48 CT SCAN OF THE ABDOMEN AND PELVIS WITH IV CONTRAST CLINICAL HISTORY: Generalized abdominal pain. Small bowel obstruction seen by x-ray. COMPARISON STUDY: Abdominal CT dated 07/03/2023. Abdominal radiograph dated 07/06/2023. TECHNIQUE: Following the IV administration of 90 cc of Optiray 320, CT scan of the abdomen and pelvis is performed from the lung bases to the proximal femora. Images are reviewed in the axial, sagittal, and coronal planes. IV contrast was administered without complication. A dose lowering technique was utilized adhering to the principles of ALARA. CT DOSE: 932.96 mGy.cm FINDINGS: Lung bases: The heart is normal in size and without pericardial effusion. The coronary arteries are densely calcified. There is bibasilar scarring/atelectasis. No airspace consolidation or pleural effusion is identified. Gynecomastia is noted. Liver: The contrast-enhanced liver is normal in size, contour, and attenuation. There is no intrahepatic biliary ductal dilatation. The hepatic veins and portal veins are patent. Gallbladder: Unremarkable. Spleen: Normal in size and attenuation. Pancreas: Unremarkable. Adrenal glands: Unremarkable. Kidneys: The contrast enhanced kidneys are normal in size and without hydronephrosis. The kidneys enhance symmetrically. Small bilateral nonobstructing renal calculi measure up to 3 mm. Abdominal vasculature: The abdominal aorta is normal in course and caliber noting mild atherosclerotic calcification. Bowel: There are slightly distended loops of mid to distal small bowel in the lower abdomen and pelvis which measure up to 4 cm diameter. These show air-fluid levels and there is associated interloop fluid. There is a sharp proximal transition point with mild shouldering suggested on image #220. The proximal small bowel is decompressed. The terminal ileum is also relatively decompressed as seen on image #199. The colon is relatively decompressed. There is moderate sigmoid diverticulosis without CT evidence of acute diverticulitis The appendix is well-visualized and normal. Peritoneum: There is trace ascites. Paracolic gutter and pelvis. No tracheal free air is seen. Lymphadenopathy: None. Pelvic viscera: The bladder, prostate, and seminal vesicles are normal as visualized. there are bilateral fat-containing inguinal hernias, right larger than left. Infiltration within the right inguinal hernia is new from previous. Surgical clips are noted along the spermatic cord bilaterally. Skeletal structures: The skeletal structures are osteopenic. There is moderate lumbosacral spondylosis. No lytic or blastic lesions are seen. IMPRESSION: 1. The mid to distal small bowel is significantly distended and fluid-filled with air-fluid levels and interloop fluid. The appearance favors obstruction over ileus; however, a discrete distal transition point is not identified. The terminal ileum and colon are relatively decompressed. Clinical correlation will be essential. 2. There are bilateral fat-containing inguinal hernias, right larger than left. Infiltration within the right inguinal hernia is new from previous. This could potentially represent a site of obstruction with spontaneous reduction. This must be correlated clinically. 3. There is a sharp proximal transition point seen in the left mid abdomen with apparent shouldering. The small bowel above this point is decompressed. This is of indeterminate significance. The shouldered appearance raises suspicion for underlying mucosal lesion of the small bowel. This difficult to assess by CT. GI follow-up is recommended, as is a follow-up abdominal CT with oral and IV contrast whenever the patient is clinically able. Capsule endoscopy could also potentially be considered. 4. Small volume abdominopelvic ascites. 5. No intraperitoneal free air is seen. 6. Bilateral nephrolithiasis. 7. Additional findings as above. ACT 112: Negative or not required by law. Electronically signed by: Michael Montes De Oca M.D. 07/06/2023 7:06 PM Chest X-Ray 07/06/23 16:52 SINGLE VIEW CHEST CLINICAL HISTORY: Substernal chest pain/epigastric abdominal pain FINDINGS: An AP, portable, upright chest radiograph is compared to study dated 07/03/2023. The cardiomediastinal silhouette is top normal for projection. Chronic interstitial thickening is previous. There is bibasilar scarring/atelectasis. No airspace consolidation or large pleural effusion is identified. No pneumothorax is seen. The skeletal structures are osteopenic. The bony thorax is grossly intact. There is gaseous distention of the bowel loops seen below the diaphragm. IMPRESSION: 1. No active disease in the chest. 2. There is gaseous distention of the bowel loops seen below the diaphragm. ACT 112: Negative or not required by law. Electronically signed by: Michael Montes De Oca M.D. 07/06/2023 5:42 PM PG Care Time/CCT Total # of Minutes Spent Total Time Spent with Patient: Total time spent is greater than 50% in coordination of care (as documented) at patient's floor/unit and/or counseling patient: Coding Level of Care Code 25472 SUB INP/OBS CARE 3/50MIN Diagnoses Small bowel obstruction K56.609 Chronic back pain M54.9; G89.29 Abdominal pain R10.9 Right inguinal hernia K40.90 Tobacco abuse Z72.0 Vitamin D deficiency E55.9
--- NOTE | 2023-07-07 09:29 | Gastrointestinal Consultation ---
Date of Consultation July 07, 2023 Assessment & Plan (1) Small bowel obstruction: He has evidence of small bowel obstruction with "shouldering area" in ileum. We are asked to consider VCE. First, the only contraindication to capsule endoscopy is small bowel obstruction. Logic would say that if capsule is performed for obstruction and it gets stuck at the site then it would tell us where the problem is. But it is the only contraindication to capsule procedure. Could consider evaluating small bowel with traditional small bowel enteroclysis study if it is done here or perhaps MR enterography. It doesn't seem to be reachable with any endoscopic procedure that we do here. History of Present Illness Reason for Consultation: Small bowel obstruction Attending Physician: Adam Richmond History of Present Illness 63 year old man who was "slammed" to the ground on Sunday by his horse. Shortly after that he developed abdominal pain and vomiting. Went to ER and was told no obstruction on CT and sent home. Readmitted with xray findings of small bowel obstruction with transition in the back half of the ileum but not in TI. Suggestion has been made to do VCE. Patient had diarrhea last night and has been passing a lot of gas in the last 24 hours. He denies weight loss. He denies prior problems like this. Allergies Allergy/AdvReac Type Severity Reaction Status Date / Time latex Allergy Mild see comment Verified 07/06/23 12:51 Penicillins Allergy Mild HIVES AND Unverified 07/06/23 12:51 SWELLING A CHILD Home Medications Medication Instructions Recorded Confirmed Type albuterol sulfate 90 mcg/actuation 2 puff inhalation Q6H PRN 01/11/23 07/06/23 Rx aerosol inhaler (Proventil HFA) shortness of breath or wheezing #8.5 grams tadalafil 20 mg tablet 20 mg PO DAILY PRN Sexual Activity 04/27/23 07/06/23 History dicyclomine 20 mg tablet 20 mg PO QID #20 tabs 07/04/23 07/06/23 Rx ondansetron 4 mg disintegrating 4 mg PO Q6H PRN nausea and 07/04/23 07/06/23 Rx tablet vomiting #14 tabs simethicone 125 mg chewable tablet 125 mg PO QID PRN abdominal 07/04/23 07/06/23 Rx distention #30 tabs methocarbamol 750 mg tablet 750 mg PO TID PRN back spasm #15 07/06/23 07/06/23 Rx tabs pantoprazole 40 mg tablet,delayed 40 mg PO DAILY #30 tabs 07/06/23 07/06/23 Rx release sucralfate 1 gram tablet (Carafate) 1 g PO BID #14 tabs 07/06/23 07/06/23 Rx Patient History Medical History Allergic rhinitis Asthma due to environmental allergies has never needed prn inhaler Chronic sinusitis Dyslipidemia no meds Erectile dysfunction Esophageal reflux History of COVID-19 09/2022- "flu like symptoms"; resolved Peyronie's disease Prediabetes A1c 5.8% 10/2022 Renal calculi monitoring Right inguinal hernia Surgical History H/O lithotripsy History of carpal tunnel surgery History of colonoscopy 01/2023 History of knee surgery right knee meniscus History of rotator cuff surgery Left History of shoulder surgery right decompression x2 Hx of shoulder surgery Right bicep repair Family History Mother Heart disease Asthma Brother Colorectal cancer Sister Colorectal cancer Aunt Heart disease Uncle Heart disease Social History Smoking Status: Never smoker Tobacco Type: Smokeless Tobacco (Dip or Chew) Second Hand Exposure: No; Do You Dip or Chew Tobacco: Yes (3 can/wk); Hx Alcohol Use: Yes Alcohol type: beer Alcohol Intake Frequency Comment: occassionally Hx Substance Use: No Preferred Language: French Communication Ability: Effective Visual Impairment: No Limitations Hearing Ability: Hard of Hearing Fact Checker Required: No Beliefs That Will Affect Care: None marital status: Current Living Situation: Spouse current occupational status: employed Feels Safe at Home: Yes Safety Concerns: Feels Safe At This Time Childhood Exposure to Second-Hand Smoke: Yes Diet: regular caffeine: Yes during the past year weight has: remained stable Dental Care, Regularly: Yes Physical Activity Frequency: Daily Physical Activity Frequency Comment: active lifestyle Seatbelt Use: always Sunscreen Use: No Do you think of yourself as: straight/heterosexual Assistive Devices: Glasses Review of Systems Review of Systems: All systems reviewed & are unremarkable except as noted in HPI & below Physical Exam Constitutional: WD/WN, vitals as above no acute distress Eyes: PERRL, conjunctivae normal, anicteric sclerae ENMT: external ear and nose normal, oropharynx normal Neck: trachea midline, no thyromegaly Respiratory: normal respiratory effort, lungs clear to auscultation Cardiovascular: RRR, no murmur, no edema Gastrointestinal (Abdomen): Inspection/Auscultation: abdomen normal to inspection Percussion/Palpation: + abdomen tender Musculoskeletal: Extremities: no cyanosis and no clubbing Skin: no rashes, warm and dry Neurologic: PERRL, EOMI, accommodation nl, no face palsy, no dysarthria Psychiatric: Orientation: alert and oriented x 3 Results & Data Vital Signs (Past 12 Hours) Vital Signs Temp Pulse Resp BP Pulse Ox O2 Del Method 07/07/23 07:15 37 C 54 L 16 138/82 95 Room Air Laboratory Results Laboratory Results WBC 7.27 K/ul (4.8-10.8) 07/07/23 05:54 RBC 4.03 M/uL (4.70-6.10) L 07/07/23 05:54 Hgb 12.6 g/dl (14.0-18.0) L 07/07/23 05:54 Hct 36.3 % (42.0-52.0) L 07/07/23 05:54 MCV 90.1 fL (80.0-100.0) 07/07/23 05:54 MCH 31.3 pg (25.0-34.0) 07/07/23 05:54 MCHC 34.7 g/dL (32.0-36.0) 07/07/23 05:54 RDW Std Deviation 40.7 fL (36.4-46.3) 07/07/23 05:54 RDW Coeff of Juarez 12.3 % (11.5-14.5) 07/07/23 05:54 Plt Count 173 K/uL (130-400) 07/07/23 05:54 MPV 10.1 fL (9.4-12.4) 07/07/23 05:54 Immature Gran % (Auto) 0.6 % 07/07/23 05:54 Neut % (Auto) 59.7 % 07/07/23 05:54 Lymph % (Auto) 25.2 % 07/07/23 05:54 King % (Auto) 10.9 % 07/07/23 05:54 Eos % (Auto) 2.9 % 07/07/23 05:54 Baso % (Auto) 0.7 % 07/07/23 05:54 Neut # (Auto) 4.35 K/uL (1.40-6.50) 07/07/23 05:54 Lymph # (Auto) 1.83 K/uL (1.20-3.40) 07/07/23 05:54 King # (Auto) 0.79 K/uL (0.11-0.59) H 07/07/23 05:54 Eos # (Auto) 0.21 K/uL (0.00-0.50) 07/07/23 05:54 Baso # (Auto) 0.05 K/uL (0.00-0.20) 07/07/23 05:54 Immature Gran # (Auto) 0.04 K/uL (0.01-0.20) 07/07/23 05:54 PT 12.2 Seconds (9.0-12.0) H 07/06/23 17:42 INR 1.1 (0.9-1.1) 07/06/23 17:42 APTT 25.0 Seconds (21.0-31.0) 07/06/23 17:42 PTT Ratio 0.9 07/06/23 17:42 Sodium 135 mmol/L (136-145) L 07/07/23 05:54 Potassium 3.5 mmol/L (3.5-5.1) 07/07/23 05:54 Chloride 100 mmol/L (98-107) 07/07/23 05:54 Carbon Dioxide 28 mmol/L (21-32) 07/07/23 05:54 Anion Gap 7 (3-11) 07/07/23 05:54 BUN 15 mg/dl (6-23) 07/07/23 05:54 Creatinine 0.93 mg/dl (0.6-1.4) 07/07/23 05:54 Est Cr Clr Drug Dosing 83.4 ml/min 07/07/23 05:54 Est GFR ( Amer) 102.3 ml/min 07/07/23 05:54 Est GFR (Non-Af Amer) 88.3 ml/min 07/07/23 05:54 BUN/Creatinine Ratio 16.1 (10-20) 07/07/23 05:54 Glucose 80 mg/dl (70-99(Fasting)) 07/07/23 05:54 Lactate 1.8 mmol/L (0.4-2.0) 07/06/23 17:42 Calcium 8.7 mg/dl (8.6-10.3) 07/07/23 05:54 Magnesium 2.0 mg/dl (1.7-2.4) 07/07/23 05:54 Total Bilirubin 0.8 mg/dl (0.2-1.0) 07/07/23 05:54 AST 13 U/L (13-39) 07/07/23 05:54 ALT 10 U/L (7-52) 07/07/23 05:54 Alkaline Phosphatase 58 U/L (34-104) 07/07/23 05:54 Total Protein 6.1 gm/dl (6.0-8.3) 07/07/23 05:54 Albumin 3.8 gm/dl (3.4-5.0) 07/07/23 05:54 Globulin 2.3 gm/dl (2.5-4.0) L 07/07/23 05:54 Albumin/Globulin Ratio 1.7 (0.9-2) 07/07/23 05:54 Urine Color Yellow 07/07/23 04:50 Urine Appearance Clear (Clear) 07/07/23 04:50 Urine pH 6.0 (4.5-7.5) 07/07/23 04:50 Ur Specific Linch > 1.045 (1.000-1.030) H 07/07/23 04:50 Urine Protein Negative (Negative) 07/07/23 04:50 Urine Glucose (UA) Negative (Negative) 07/07/23 04:50 Urine Ketones 1+ (Negative) H 07/07/23 04:50 Urine Blood Negative (Negative) 07/07/23 04:50 Urine Nitrite Negative (Negative) 07/07/23 04:50 Urine Bilirubin Negative (Negative) 07/07/23 04:50 Urine Urobilinogen Negative (Negative) 07/07/23 04:50 Ur Leukocyte Esterase Negative (Negative) 07/07/23 04:50 Impressions Abdomen/Pelvis CT 07/06/23 16:48 CT SCAN OF THE ABDOMEN AND PELVIS WITH IV CONTRAST CLINICAL HISTORY: Generalized abdominal pain. Small bowel obstruction seen by x-ray. COMPARISON STUDY: Abdominal CT dated 07/03/2023. Abdominal radiograph dated 07/06/2023. TECHNIQUE: Following the IV administration of 90 cc of Optiray 320, CT scan of the abdomen and pelvis is performed from the lung bases to the proximal femora. Images are reviewed in the axial, sagittal, and coronal planes. IV contrast was administered without complication. A dose lowering technique was utilized adhering to the principles of ALARA. CT DOSE: 932.96 mGy.cm FINDINGS: Lung bases: The heart is normal in size and without pericardial effusion. The coronary arteries are densely calcified. There is bibasilar scarring/atelectasis. No airspace consolidation or pleural effusion is identified. Gynecomastia is noted. Liver: The contrast-enhanced liver is normal in size, contour, and attenuation. There is no intrahepatic biliary ductal dilatation. The hepatic veins and portal veins are patent. Gallbladder: Unremarkable. Spleen: Normal in size and attenuation. Pancreas: Unremarkable. Adrenal glands: Unremarkable. Kidneys: The contrast enhanced kidneys are normal in size and without hydronephrosis. The kidneys enhance symmetrically. Small bilateral nonobstructing renal calculi measure up to 3 mm. Abdominal vasculature: The abdominal aorta is normal in course and caliber noting mild atherosclerotic calcification. Bowel: There are slightly distended loops of mid to distal small bowel in the lower abdomen and pelvis which measure up to 4 cm diameter. These show air-fluid levels and there is associated interloop fluid. There is a sharp proximal transition point with mild shouldering suggested on image #220. The proximal small bowel is decompressed. The terminal ileum is also relatively decompressed as seen on image #199. The colon is relatively decompressed. There is moderate sigmoid diverticulosis without CT evidence of acute diverticulitis The appendix is well-visualized and normal. Peritoneum: There is trace ascites. Paracolic gutter and pelvis. No tracheal free air is seen. Lymphadenopathy: None. Pelvic viscera: The bladder, prostate, and seminal vesicles are normal as visualized. there are bilateral fat-containing inguinal hernias, right larger than left. Infiltration within the right inguinal hernia is new from previous. Surgical clips are noted along the spermatic cord bilaterally. Skeletal structures: The skeletal structures are osteopenic. There is moderate lumbosacral spondylosis. No lytic or blastic lesions are seen. IMPRESSION: 1. The mid to distal small bowel is significantly distended and fluid-filled with air-fluid levels and interloop fluid. The appearance favors obstruction over ileus; however, a discrete distal transition point is not identified. The terminal ileum and colon are relatively decompressed. Clinical correlation will be essential. 2. There are bilateral fat-containing inguinal hernias, right larger than left. Infiltration within the right inguinal hernia is new from previous. This could potentially represent a site of obstruction with spontaneous reduction. This must be correlated clinically. 3. There is a sharp proximal transition point seen in the left mid abdomen with apparent shouldering. The small bowel above this point is decompressed. This is of indeterminate significance. The shouldered appearance raises suspicion for underlying mucosal lesion of the small bowel. This difficult to assess by CT. GI follow-up is recommended, as is a follow-up abdominal CT with oral and IV contrast whenever the patient is clinically able. Capsule endoscopy could also potentially be considered. 4. Small volume abdominopelvic ascites. 5. No intraperitoneal free air is seen. 6. Bilateral nephrolithiasis. 7. Additional findings as above. ACT 112: Negative or not required by law. Electronically signed by: Michael Montes De Oca M.D. 07/06/2023 7:06 PM Chest X-Ray 07/06/23 16:52 SINGLE VIEW CHEST CLINICAL HISTORY: Substernal chest pain/epigastric abdominal pain FINDINGS: An AP, portable, upright chest radiograph is compared to study dated 07/03/2023. The cardiomediastinal silhouette is top normal for projection. Chronic interstitial thickening is previous. There is bibasilar scarring/atelectasis. No airspace consolidation or large pleural effusion is identified. No pneumothorax is seen. The skeletal structures are osteopenic. The bony thorax is grossly intact. There is gaseous distention of the bowel loops seen below the diaphragm. IMPRESSION: 1. No active disease in the chest. 2. There is gaseous distention of the bowel loops seen below the diaphragm. ACT 112: Negative or not required by law. Electronically signed by: Michael Montes De Oca M.D. 07/06/2023 5:42 PM
--- NOTE | 2023-07-07 10:47 | XRay Report ---
KUB CLINICAL HISTORY: fu sbo COMPARISON STUDY: CT of the abdomen and pelvis July 06, 2023. FINDINGS: Incidental note is made of contrast within the bladder from recent contrast-enhanced CT. Mu ltiple loops of moderately dilated small bowel are again noted. This is similar to CT of July 06, 2023. IMPRESSION: No significant change in moderate small bowel dilatation. This favors a small bowel obst ruction. An ileus could appear similar. ACT 112: Negative or not required by law. Electronically signed by: Giuseppe Jeff M.D. 07/07/2023 10:46 AM
[2023-07-07] MEDS: PANTOprazole 40 MG in SYRINGE 0 ML IV SCH (10:51)
--- NOTE | 2023-07-07 13:49 | XRay Report ---
XR hip LT 2V w pelvis CLINICAL HISTORY: fall from horse, eval fx COMPARISON: CT of the abdomen and pelvis July 06, 2023. FINDINGS: Sacroiliac joints and symphysis pubis are intact. There is no acute fracture within the pe lvis or hips. Hip joint spaces are preserved. There is mild bilateral hip osteophytosis. IMPRESSION: No acute fracture within the pelvis or hips. ACT 112: Negative or not required by law. Electronically signed by: Giuseppe Jeff M.D. 07/07/2023 1:47 PM
--- NOTE | 2023-07-07 13:50 | XRay Report ---
XR thoracic spine 3V routine CLINICAL HISTORY: fall from horse, eval fx COMPARISON STUDY: Chest radiograph April 30, 2023. FINDINGS: Alignment of the thoracic spine is anatomic. Slight loss of height of several thoracic vert ebral bodies is similar to chest radiograph of April 30, 2023. No acute fracture is identified. Mild disc space narrowing and osteophytosis within the thoracic spine is present. IMPRESSION: 1. No acute thoracic spine fracture or subluxation. 2. No change in several old mild thoracic spine compression deformities which are likely old. ACT 112: Negative or not required by law. Electronically signed by: Giuseppe Jeff M.D. 07/07/2023 1:48 PM
--- NOTE | 2023-07-07 13:51 | XRay Report ---
XR lumbar spine 2-3V CLINICAL HISTORY: fall from horse, eval fx COMPARISON STUDY: CT of the abdomen and pelvis July 06, 2023. FINDINGS: There is mild loss of height of the inferior endplate of L1. There is no retropulsion. Othe rwise, vertebral body heights are maintained. No osseous lesions are noted. Facet joints are intact. Moderate multilevel degenerative changes are present. IMPRESSION: 1. Mild loss of height of the inferior endplate of L1. This favors a subacute to acute compression fr acture. 2. Moderate multilevel degenerative changes within the lumbar spine. ACT 112: Negative or not required by law. Electronically signed by: Giuseppe Jeff M.D. 07/07/2023 1:50 PM
[2023-07-07] MEDS ORDERED: oxyCODONE HCL IR 5 MG TAB (IMMEDIATE RELEASE) PO PRN (14:53)
[2023-07-07] MEDS: CHOLECALCIFEROL 1,000 UNITS 25 MCG TAB PO SCH (16:03)
[2023-07-08] MEDS: LACTATED RINGER'S 1,000 ML IV SCH (00:02)
[2023-07-08] MEDS: metroNIDAZOLE 500 MG/100 ML BAG IV SCH ×2 (05:07→13:12)
--- NOTE | 2023-07-08 05:25 | Surgery Progress Note ---
Date of Service July 08, 2023 Assessment & Plan (1) Small bowel obstruction: Plan: The patient has been admitted on the hospitalist service. From a surgical perspective we recommend continuing care as follows: Continue IV fluid for hydration until oral intake is felt to be reliable Continue antiemetics KUB has been ordered for this morning by the medical service. If there are no concerning findings consideration be given to advancing patient's diet further Check a.m. labs when available As noted, the patient had an area of irregularity in the patient's small bowel, of unclear etiology. It is uncertain if this is contributing to his current p resentation and further evaluation may be warranted. Further evaluation may include modalities such as a repeat CT scan with oral and IV contrast and/or capsule endoscopy as suggested by the radiologist interpreting his previous CT scan Concerning the patient's inguinal hernias, there does not appear to be any obstruction on CT scan from these hernias. Clinically the patient does not have any evidence of a incarcerated or strangulated inguinal hernia on the right or left. For the present time we will recommend that the patient maintains his plans for elective inguinal hernia repair with Dr. Tran on 07/24/2023 Additional recommendations be forthcoming based on his clinical course as unfolds Admission and Anticipated Discharge Date Admission Date: July 06, 2023 Supervising Physician Co-Signing Physician Notes Patient seen and examined, labs reviewed, agree with above. 63-year-old male status post fall admitted with possible partial small bowel obstruction versus ileus. He has continued to pass gas and is feeling much much better. He has had 2 small bowel movements. He is tolerating clear liquids. I reviewed the CT scan with radiology yesterday and given his history of fall they feel that it could reflect an ileus. We will advance him to low fiber diet as tolerated. Possible discharge this afternoon or tomorrow. He would need an outpatient CT enterography in 1 to 2 months. Subjective Patient is resting comfortably in bed. He denies any nausea or vomiting. He is passing flatus but has not had a bowel movement since admission. His diet was advanced to clear liquid yesterday which he tolerated and he notes he does feel hungry. He notes minimal abdominal pain. Physical Exam Gastrointestinal (Abdomen): Abdomen is soft and nondistended. There is minimal tenderness with palpation. There is no rebound tenderness or guarding. Bowel sounds are present. Results & Data Vital Signs (Past 12 Hours) Vital Signs Temp Pulse Resp BP Pulse Ox O2 Del Method 07/07/23 19:19 37.3 C 59 L 16 136/78 94 Room Air PG Care Time/CCT Total # of Minutes Spent Total Time Spent with Patient: Total time spent is greater than 50% in coordination of care (as documented) at patient's floor/unit and/or counseling patient: Coding Level of Care Code 55711 SUB INP/OBS CARE 10/11MIN Diagnoses Small bowel obstruction K56.609
[2023-07-08 06:35] LABS: Basophils # (auto) 0.05 K/uL (0.00-0.20); Basophils % (auto) 0.8 %; Eosinophils # (auto) 0.24 K/uL (0.00-0.50); Eosinophils % (auto) 3.9 %; Hematocrit (blood only) 34.7 % (42.0-52.0); Hemoglobin 12.4 g/dl (14.0-18.0); Immature Granulocytes # (auto) 0.04 K/uL (0.01-0.20); Immature Granulocytes % (auto) 0.6 %; Lymphocytes # (auto) 1.48 K/uL (1.20-3.40); Lymphocytes % (auto) 23.8 %; Mean Corpuscular Hemoglobin 31.4 pg (25.0-34.0); Mean Corpuscular Hgb Conc 35.7 g/dL (32.0-36.0); Mean Corpuscular Volume 87.8 fL (80.0-100.0); Monocytes # (auto) 0.74 K/uL (0.11-0.59); Monocytes % (auto) 11.9 %; Neutrophils # (auto) 3.67 K/uL (1.40-6.50); Platelet Count 192 K/uL (130-400); RDW Coefficient of Variation 12.3 % (11.5-14.5); RDW Standard Deviation 39.5 fL (36.4-46.3); Red Blood Count 3.95 M/uL (4.70-6.10); White Blood Count 6.22 K/ul (4.8-10.8)
[2023-07-08 06:56] LABS: Albumin Globulin Ratio 1.6 (0.9-2); Albumin Level 3.7 gm/dl (3.4-5.0); Bilirubin,Total 0.8 mg/dl (0.2-1.0); Calcium 9.1 mg/dl (8.6-10.3); Creatinine Clr Calc Pharmacy 90.2 ml/min; Est GFR (African American) 108.5 ml/min; Est GFR (Non-African American) 93.6 ml/min; Globulin 2.3 gm/dl (2.5-4.0); Potassium 3.6 mmol/L (3.5-5.1)
[2023-07-08] MEDS: CIPROFLOXACIN / D5W 400 MG/200 ML BAG IV SCH (08:16)
[2023-07-08] MEDS: CHOLECALCIFEROL 1,000 UNITS 25 MCG TAB PO SCH (08:17)
[2023-07-08] MEDS: FAMOTIDINE 20 MG in SYRINGE 3 ML IV SCH (08:17)
[2023-07-08] MEDS ORDERED: LACTATED RINGER'S 1,000 ML IV SCH (08:30)
--- NOTE | 2023-07-08 08:32 | Hospitalist Progress Note ---
Date of Service July 08, 2023 Assessment & Plan (1) Small bowel obstruction: Plan: Admitted w/ moderate abdominal pain at the time of admission , noted to have SBO on outpatient KUB ordered by patient's PCP for ongoing abdominal discomfort/bloating. Was seen in the [facility] ED on 07/06 where workup was unremarkable, discharged with Bentyl, zorfran, and simethicone Bentyl may have exacerbated his symptoms due to it's antispasmodic effects General Surgery consult placed Lactic 1.8 CT Abd/pelvis w/ IV contrast obtained * The mid to distal small bowel is significantly distended and fluid-filled with air-fluid levels and interloop fluid. The appearance favors obstruction over ileus; however, a discrete distal transition point is not identified. The terminal ileum and colon are relatively decompressed. Clinical correlation will be essential. * There are bilateral fat-containing inguinal hernias, right larger than left. Infiltration within the right inguinal hernia is new from previous. This could potentially represent a site of obstruction with spontaneous reduction. This must be correlated clinically. * There is a sharp proximal transition point seen in the left mid abdomen with apparent shouldering. The small bowel above this point is decompressed. This is of indeterminate significance. The shouldered appearance raises suspicion for underlying mucosal lesion of the small bowel. This difficult to assess by CT. GI follow-up is recommended, as is a follow-up abdominal CT with oral and IV contrast whenever the patient is clinically able. Capsule endoscopy could also potentially be considered. No need for NGT at present IV abx: Cipro/Flagyl for now empirically ordered on admission IVF, extended Protonix IVP daily added, consider BID GI consulted, seen by [facility] in the past -Had c-scope earlier this year w/ Case 01/29/23 - path w/ serrated polyp with features of a sessile serrated adenoma/sessile serrated polyp is seen, no dysplasia or carcinoma seen ?Repeating CTAP w/ IV/Oral while inpatient -- discussed w/ surgery and can be done outpatient if progressing well passing gas since last night, pain /10, wanting to eat if possible Discussed w/ surgery, felt ok for clear liquids later today -- ordered Pain control/antiemetics prn SCDs Monitor on repeat eval (2) Chronic back pain: Plan: -Tylenol, lidocaine patch, and heat to start morphine available prn ACUTE ON CHRONIC Also notes his pain started worsening AFTER HE WAS THROWN FROM a horse on Sunday, reporting significant BACK PAIN. Had been seen outpatient by chiropractor recently --> obtaining xray lumbar/thoracic and pelvis/L hip imaging to eval for fracture. Strength testing is intact at present can consult orthotics for brace/consider having Dr Sheth review imaging if not stable w/ pain control Will consult PT/OT (3) Abdominal pain: Plan: Likely multifactorial including acute SBO and exacerbation of patient's known reflux Patient has been using NSAID's for musculoskeletal pain over the past week, symptoms are similar to typical GERD symptoms Bowel rest, IV fluids Will give a dose of IV pantoprazole and famotidine now --> scheduled daily pepcid, but on protonix at home -- ordered IVP daily protonix while npo Of note, patient w/ b/l nephrolithiasis -- has had 9x6mm distal L ureteral stone on imaging from April and underwent lithotripsy w/ notes from urology reporting increased discomfort from his R inguinal hernia since dealing w/ his stone issues No large obstructing stones noted on current imaging. reports pain not like stone pain in past (4) Right inguinal hernia: Plan: Does not appear strangulated at the time of my exam -Follow CT of the abd/pelvis w/IV con and gen surgery consult --> f/u with surgery outpatient in Jul for discussion for surgery. (5) Tobacco abuse: Plan: -Patient uses chewing tobacco -Not interested in nicotine patches at this time (6) Vitamin D deficiency: Plan continued inpatient stay imaging for back given acute trauma reported, pain control. will consult PT clear liquid diet for supper as long as continues to pass gas/feeling ok Admission and Anticipated Discharge Date Admission Date: July 06, 2023 Subjective Eval around 10:30, doing well. 2BM from last night to first thing this morning, 2 additional BM reported. Discussed advancing to low fiber diet and if tolerates he would like to go home. Discussed avoiding chiropractor, continue ibuoprofen for pain control w/ tylenol at home (wanting to avoid opiates) and can use the methocarbamol for spasm pain but would avoid any bentyl. Avoid heavy lifting in meantime and f/u with PCP about ref to ortho if any worsened sx (hx sciatica, no active flare). Questions/concerns addressed at this time. Physical Exam 2 Physical Exam: General: 63yo male sitting up in bed, NAD but reporting mildly uncomfortable to back HEENT: head normocephalic, atraumatic, +facial hair, trachea midline Resp; CTA, no w/c/r, on room air CV: regular/cullen, no significant m/r/g, no pitting edema/calf tenderness GI:+BS, slightly hypoactive but present in all 4quadrants, slight distension, minimally tender, no guarding/rebound R inguinal hernia, no strangulation MSK/Neuro: tenderness to palpation thoracic/lumbar spine, L posterior hip, strength to LE w/ dorsiflexion/plantarflexion intact, pulses palpable Psych: AOx3 Results & Data Results & Data Vital Signs (Past 12 Hours) Vital Signs Temp Pulse Resp BP Pulse Ox O2 Del Method 07/08/23 07:20 36.7 C 53 L 16 153/78 H 96 Room Air PG Care Time/CCT Total # of Minutes Spent Total Time Spent with Patient: Total time spent is greater than 50% in coordination of care (as documented) at patient's floor/unit and/or counseling patient: Coding Diagnoses Small bowel obstruction K56.609 Chronic back pain M54.9; G89.29 Abdominal pain R10.9 Right inguinal hernia K40.90 Tobacco abuse Z72.0 Vitamin D deficiency E55.9
[2023-07-08] MEDS: PANTOprazole 40 MG in SYRINGE 0 ML IV SCH (10:46)
--- NOTE | 2023-07-08 11:03 | Discharge Summary ---
Date of Service July 08, 2023 Admission HPI Per Admitting Provider Saturnino is a 63 year old male with a H significant right inguinal hernia (planning to have repaired w/General Surgery, asthma, GERD, and dyslipidemia who presented to the [facility] ED at the recommendation of his PCP after an outpatient KUB was positive for small bowel obstruction. The patient has been experiencing abdominal bloating, pain, and constipation since 07/02. He was evaluated in the [facility] ED on 07/03. At that time the patient's workup included CBC, CMP, UA, and CT of the abd/pelvis w/IV con. His labs were unremarkable, CT was read as "Mild gaseous distention of the colon. No obstruction or overt inflammatory changes along the GI tract.". He was discharged home with prescriptions of Bentyl, ondansetron, and simethicone. At the time of the exam the patient was seen in one of the triage rooms due to high ED census, he was in no acute distress but was noted to be uncomfortable. History was obtained from the patient and his . They state that his symptoms started on 07/02. On 07/01 he had an accident when one of his horses knocked him to the ground, he landed on his right arm/side and denies hitting his head or losing consciousness. He states that he was first experiencing back spasms after the accident. On 07/02 he went to his Chiropractor who performed spine manipulation, greatly improving his back pain. Later in the day, on 07/02, the patient began to experience generalized abdominal discomfort and distention. He states that he did not have a bowel movement from 07/03 until 1230 this afternoon when he had an episode of non- bloody diarrhea. Since having the episode of diarrhea he states that he has not passed any gas, he has been belching frequently. He denies previous abdominal surgery and was evaluated in the General Surgery clinic on 05/31 due to worsening right inguinal hernia. Per their note, they plan on repairing the hernia in the near future. The patient states that he has had the inguinal hernia for years. It recently was exacerbated/enlarged while he was dealing with a kidney stone and had increased abdominal pressure while passing the stone. He denies increased pain/discomfort of the hernia recently. He notes epigastric abdominal pain with radiation up his throat. He states that this has been progressing since he has had multiple episodes of non-blood emesis over the past 72 hours. He does have a history of GERD and feels as though this discomfort is similar to his reflux. He uses chewing tobacco and denies frequent alcohol use. He was using ibuprofen over the past 48 hours to treat his back pain. He took 600 mg twice on 07/04, and took 400 mg q4h yesterday. He is a full code and wishes for his to make medical decisions for him if he cannot make them himself. Review of outpatient CBC and CMP ordered by the patient's PCP prior to patient's arrival today are unremarkable Please refer to Dr. Hulrey's attestation for any changes to the treatment plan Admission Exam Per Admitting Provider Physical Exam: General:In no acute distress, stated age, well-nourished, non-toxic appearing HEENT:Normocephalic, atraumatic, no scleral icterus, pupils around round, symmetrical, and reactive to light, dry mucus membranes, trachea midline, no thyromegaly Chest/Pulm:No respiratory distress, symmetrical chest expansion, clear breath sounds throughout Cardiac:RRR, no murmurs noted Abdomen:Negative for ascites and bruising, hypoactive bowel sounds, soft, tender to palpation in the BL lower abdominal kinsey with left > right, negative morris's sign :Right inguinal hernia noted on palpation of the right groin is minimally tender to palpation, no signs of active strangulation at this time Musculoskeletal:Symmetrical and without signs of acute trauma, upper and lower extremities with full ROM, no atrophy, spasticity, or flaccidity Extremities:Radial, dorsalis pedis, and posterior tibial pulses are intact and symmetrical, no edema noted in the BL LE's Skin:Warm, dry, no rashes , lesions, or scars noted Neuro:Alert and oriented to person, place, month, year, and president, no focal defects, no tremors noted Psych:No acute distress, calm and cooperative during the exam Principal Diagnosis Small bowel obstruction vs ileus, L1 compression fracture Discharge Exam General: 63yo male sitting up in bed, NAD but reporting mildly uncomfortable to back HEENT: head normocephalic, atraumatic, +facial hair, trachea midline Resp; CTA, no w/c/r, on room air CV: regular/cullen, no significant m/r/g, no pitting edema/calf tenderness GI:+BS, slightly hypoactive but present in all 4quadrants, slight distension, minimally tender, no guarding/rebound R inguinal hernia, no strangulation MSK/Neuro: tenderness to palpation lumbar spine, strength to LE w/ dorsif lexion/plantarflexion intact 5/5, pulses palpable paraspinal muscle tenderness of lower back Psych: AOx3 Discharge Data Allergies Allergy/AdvReac Type Severity Reaction Status Date / Time latex Allergy Mild see comment Verified 07/06/23 12:51 Penicillins Allergy Mild HIVES AND Unverified 07/06/23 12:51 SWELLING A CHILD Consultations 07/06/23 16:06 ED Decision to Admit Stat 07/06/23 16:34 Consult General Surgery Routine 07/07/23 08:29 Consult Gastroenterology Routine 07/08/23 10:57 Consult [facility] occ therapist Routine Ordered Studies Abdomen/Pelvis CT 07/06/23 16:48 CT SCAN OF THE ABDOMEN AND PELVIS WITH IV CONTRAST CLINICAL HISTORY: Generalized abdominal pain. Small bowel obstruction seen by x-ray. COMPARISON STUDY: Abdominal CT dated 07/03/2023. Abdominal radiograph dated 07/06/2023. TECHNIQUE: Following the IV administration of 90 cc of Optiray 320, CT scan of the abdomen and pelvis is performed from the lung bases to the proximal femora. Images are reviewed in the axial, sagittal, and coronal planes. IV contrast was administered without complication. A dose lowering technique was utilized adhering to the principles of ALARA. CT DOSE: 932.96 mGy.cm FINDINGS: Lung bases: The heart is normal in size and without pericardial effusion. The coronary arteries are densely calcified. There is bibasilar scarring/ate lectasis. No airspace consolidation or pleural effusion is identified. Gynecomastia is noted. Liver: The contrast-enhanced liver is normal in size, contour, and attenuation. There is no intrahepatic biliary ductal dilatation. The hepatic veins and portal veins are patent. Gallbladder: Unremarkable. Spleen: Normal in size and attenuation. Pancreas: Unremarkable. Adrenal glands: Unremarkable. Kidneys: The contrast enhanced kidneys are normal in size and without hydronephrosis. The kidneys enhance symmetrically. Small bilateral nonobstructing renal calculi measure up to 3 mm. Abdominal vasculature: The abdominal aorta is normal in course and caliber noting mild atherosclerotic calcification. Bowel: There are slightly distended loops of mid to distal small bowel in the lower abdomen and pelvis which measure up to 4 cm diameter. These show air-fluid levels and there is associated interloop fluid. There is a sharp proximal transition point with mild shouldering suggested on image #220. The proximal small bowel is decompressed. The terminal ileum is also relatively decompressed as seen on image #199. The colon is relatively decompressed. There is moderate sigmoid diverticulosis without CT evidence of acute diverticulitis The appendix is well-visualized and normal. Peritoneum: There is trace ascites. Paracolic gutter and pelvis. No tracheal free air is seen. Lymphadenopathy: None. Pelvic viscera: The bladder, prostate, and seminal vesicles are normal as visualized. there are bilateral fat-containing inguinal hernias, right larger than left. Infiltration within the right inguinal hernia is new from previous. Surgical clips are noted along the spermatic cord bilaterally. Skeletal structures: The skeletal structures are osteopenic. There is moderate lumbosacral spondylosis. No lytic or blastic lesions are seen. IMPRESSION: 1. The mid to distal small bowel is significantly distended and fluid-filled with air-fluid levels and interloop fluid. The appearance favors obstruction over ileus; however, a discrete distal transition point is not identified. The terminal ileum and colon are relatively decompressed. Clinical correlation will be essential. 2. There are bilateral fat-containing inguinal hernias, right larger than left. Infiltration within the right inguinal hernia is new from previous. This could potentially represent a site of obstruction with spontaneous reduction. This must be correlated clinically. 3. There is a sharp proximal transition point seen in the left mid abdomen with apparent shouldering. The small bowel above this point is decompressed. This is of indeterminate significance. The shouldered appearance raises suspicion for underlying mucosal lesion of the small bowel. This difficult to assess by CT. GI follow-up is recommended, as is a follow-up abdominal CT with oral and IV contrast whenever the patient is clinically able. Capsule endoscopy could also potentially be considered. 4. Small volume abdominopelvic ascites. 5. No intraperitoneal free air is seen. 6. Bilateral nephrolithiasis. 7. Additional findings as above. ACT 112: Negative or not required by law. Electronically signed by: Michael Montes De Oca M.D. 07/06/2023 7:06 PM Chest X-Ray 07/06/23 16:52 SINGLE VIEW CHEST CLINICAL HISTORY: Substernal chest pain/epigastric abdominal pain FINDINGS: An AP, portable, upright chest radiograph is compared to study dated 07/03/2023. The cardiomediastinal silhouette is top normal for projection. Chronic interstitial thickening is previous. There is bibasilar scarring/atelectasis. No airspace consolidation or large pleural effusion is identified. No pneumothorax is seen. The skeletal structures are osteopenic. The bony thorax is grossly intact. There is gaseous distention of the bowel loops seen below the diaphragm. IMPRESSION: 1. No active disease in the chest. 2. There is gaseous distention of the bowel loops seen below the diaphragm. ACT 112: Negative or not required by law. Electronically signed by: Michael Montes De Oca M.D. 07/06/2023 5:42 PM KUB X-Ray 07/07/23 08:37 KUB CLINICAL HISTORY: fu sbo COMPARISON STUDY: CT of the abdomen and pelvis July 06, 2023. FINDINGS: Incidental note is made of contrast within the bladder from recent contrast-enhanced CT. Multiple loops of moderately dilated small bowel are again noted. This is similar to CT of July 06, 2023. IMPRESSION: No significant change in moderate small bowel dilatation. This favors a small bowel obstruction. An ileus could appear similar. ACT 112: Negative or not required by law. Electronically signed by: Giuseppe Jeff M.D. 07/07/2023 10:46 AM Hip/Pelvis X-Ray 07/07/23 10:51 XR hip LT 2V w pelvis CLINICAL HISTORY: fall from horse, eval fx COMPARISON: CT of the abdomen and pelvis July 06, 2023. FINDINGS: Sacroiliac joints and symphysis pubis are intact. There is no acute fracture within the pelvis or hips. Hip joint spaces are preserved. There is mild bilateral hip osteophytosis. IMPRESSION: No acute fracture within the pelvis or hips. ACT 112: Negative or not required by law. Electronically signed by: Giuseppe Jeff M.D. 07/07/2023 1:47 PM Lumbar Spine X-Ray 07/07/23 10:51 XR lumbar spine 2-3V CLINICAL HISTORY: fall from horse, eval fx COMPARISON STUDY: CT of the abdomen and pelvis July 06, 2023. FINDINGS: There is mild loss of height of the inferior endplate of L1. There is no retropulsion. Otherwise, vertebral body heights are maintained. No osseous lesions are noted. Facet joints are intact. Moderate multilevel degenerative changes are present. IMPRESSION: 1. Mild loss of height of the inferior endplate of L1. This favors a subacute to acute compression fracture. 2. Moderate multilevel degenerative changes within the lumbar spine. ACT 112: Negative or not required by law. Electronically signed by: Giuseppe Jeff M.D. 07/07/2023 1:50 PM Thoracic Spine X-Ray 07/07/23 10:51 XR thoracic spine 3V routine CLINICAL HISTORY: fall from horse, eval fx COMPARISON STUDY: Chest radiograph April 30, 2023. FINDINGS: Alignment of the thoracic spine is anatomic. Slight loss of height of several thoracic vertebral bodies is similar to chest radiograph of April 30, 2023. No acute fracture is identified. Mild disc space narrowing and osteophytosis within the thoracic spine is present. IMPRESSION: 1. No acute thoracic spine fracture or subluxation. 2. No change in several old mild thoracic spine compression deformities which are likely old. ACT 112: Negative or not required by law. Electronically signed by: Giuseppe Jeff M.D. 07/07/2023 1:48 PM Hospital Course (1) Small bowel obstruction: Admitted w/ moderate abdominal pain at the time of admission , noted to have SBO on outpatient KUB ordered by patient's PCP for ongoing abdominal discomfort/bloating. General Surgery consult placed Lactic 1.[address] Abd/pelvis w/ IV contrast obtained * The mid to distal small bowel is significantly distended and fluid-filled with air-fluid levels and interloop fluid. The appearance favors obstruction over ileus; however, a discrete distal transition point is not identified. The terminal ileum and colon are relatively decompressed. Clinical correlation will be essential. * There are bilateral fat-containing inguinal hernias, right larger than left. Infiltration within the right inguinal hernia is new from previous. This could potentially represent a site of obstruction with spontaneous reduction. This must be correlated clinically. * There is a sharp proximal transition point seen in the left mid abdomen with apparent shouldering. The small bowel above this point is decompressed. This is of indeterminate significance. The shouldered appearance raises suspicion for underlying mucosal lesion of the small bowel. This difficult to assess by CT. GI follow-up is recommended, as is a follow-up abdominal CT with oral and IV contrast whenever the patient is clinically able. Capsule endoscopy could also potentially be considered. 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 Patient moving bowels 4 times overnight through 07/08 and tolerating advancement of diet to low fiber without issue or increased pain/nausea/vomiting Encouraged continued hydration, Tylenol/ibuprofen at discharge (patient wanting to avoid opiates). To continue PPI therapy while on NSAIDs for possible underlying reflux. Can discuss EGD in f/u with Dr Barker Consult placed for stockholder to arrange GI follow up with Dr Barker at discharge for eval off SBO/mucusal lesion on CT imaging Messaged PCP about dc plan prior to dc (2) Chronic back pain: ACUTE ON CHRONIC Also notes his pain started worsening AFTER HE SUSTAINED INJURY w/ horse and loading to trailer this past Sunday Xray lumbar/thoracic spine w/ Mild loss of height of the inferior endplate of L1. This favors a subacute to acute compression fracture. 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 Continue bowel regimen OTC to prevent constipation recommended (3) Abdominal pain: Likely multifactorial including acute SBO and exacerbation of patient's known reflux , also with back pain he reports as large presenting symptoms NSAIDS at home for past week for MSK pain from above trauma Protonix/pepcid provided Advancement of diet as above w/ success, +BMs. To continue hydration, PPI therapy at discharge and f/u with GI as outlined Of note, patient w/ b/l nephrolithiasis -- has had 9x6mm distal L ureteral stone on imaging from April and underwent lithotripsy w/ notes from urology reporting increased discomfort from his R inguinal hernia since dealing w/ his stone issues No large obstructing stones noted on current imaging. reports pain not like stone pain in past (4) Right inguinal hernia: Does not appear strangulated at the time of my exam CTAP as above, no strangulation/incarceration on exam To f/u with Dr Tran in Jul as previously scheduled To monitor for any evidence for incarceration/strangulation (5) Tobacco abuse: Patient uses chewing tobacco Not interested in nicotine patches at this time Encouraged cessation, suspect contributing to his underlying reflux as well (6) Vitamin D deficiency: checked given fractures, low replacement started and continued at discharge Plan discharged on low fiber diet, f/u GI outpatient for repeat imaging Total Time Total Time Spent Total Time Spent (In Minutes): 45 Discharge Plan Discharge Items Patient Disposition: Home - Self-Care Reason For Visit: SMALL BOWEL OBSTRUCTION Discharge Diagnosis: Ileus, L1 compression fracture Goals: You have been hospitalized for an acute medical problem. During your stay at [facility], we have made an effort to correct the problem that brought you to the hospital while keeping you as comfortable as possible. Medications were used to bring your condition under control and your discharge instructions will include directions for any medications you should take after leaving the hospital. Please make sure you see your Primary Care Provider as part of your follow up plan. Activity: As commented below Lifting Comment: no more than 15-20lb, no heavy lifting/excessive twisting/bending Non-emergency contact: Primary Care Provider Call non-emergency contact if: you have any medication questions, your symptoms worsen and your pain is not controlled Follow-up/Referrals: Geovani Churchill CRNP [Primary Care Provider] - Diet: Heart Healthy Addtl Attending Provider Instructions: You have been hospitalied for abdominal pain and gas pain which was concerning for bowel obstruction vs ileus. General surgery was consulted and feels that the incident with the horse caused you to have an ileus over a true obstruction, but was able to manage this conservatively with IV fluids, pain control and nausea medications. You have been moving your bowels and labs are stable on repeat. You should continue your protonix as prescribed by primary for reflux symptoms. You should have follow up outpatient with gastroenterology for follow up and case management will reach out to you this week to get this scheduled for repeat CT imaging in 1-2 months for follow up evaluation. Imaging of your back showed a compression fracture a L1. You can take ibuprofen 600mg every six hours for pain and alternate with tylenol 1000mg every eight hours int eh meantime. You can continue the methocarbamol for muscle spasms (noting they can cause drowsiness, please do not drive while taking these). Avoid heavy lifting as discussed and I would avoid chiropractor for now to prevent any worsening issues. Please ensure to stay well hydrated and monitor for any decreased bowel movements/increased pain. If these occur or inability to tolerate oral intake or for any other symptoms concerning for you please return to the ER. Please follow up with general surgery as arranged fro your hernia repair in July. Please follow up with primary care this upcoming week as already arranged. It has been a pleasure being a part of the medical team providing for you while you have been in the hospital. Take care! Pending Studies at Discharge: No Stand-Alone Forms: My [facility] [employer], Smoking Cessation Medications and DC Order Prescriptions: New cholecalciferol (vitamin D3) 25 mcg (1,000 unit) Capsule 3,000 unit PO QAM 30 Days Qty: 90 0RF ibuprofen 600 mg tablet 600 mg PO Q6H PRN (Reason: pain) Qty: 30 0RF Continued sucralfate [Carafate] 1 gram tablet 1 g PO BID Qty: 14 0RF pantoprazole 40 mg tablet,delayed release (DR/EC) 40 mg PO DAILY Qty: 30 2RF methocarbamol 750 mg tablet 750 mg PO TID PRN (Reason: back spasm) Qty: 15 0RF albuterol sulfate [Proventil HFA] 90 mcg/actuation HFA aerosol inhaler 2 puff inhalation Q6H PRN (Reason: shortness of breath or wheezing) Qty: 8.5 0RF ondansetron 4 mg tablet,disintegrating 4 mg PO Q6H PRN (Reason: nausea and vomiting) Qty: 14 0RF simethicone 125 mg tablet,chewable 125 mg PO QID PRN (Reason: abdominal distention) Qty: 30 0RF tadalafil 20 mg tablet 20 mg PO DAILY PRN (Reason: Sexual Activity) Discontinued dicyclomine 20 mg tablet 20 mg PO QID Qty: 20 0RF Discharge Orders: Discharge Order (Routine); Ordered 07/08/23 Ordered By: Elisabeth Orozco Admission Data Admit Date/Time: 07/06/23 16:33 Attending Provider: Adam Richmond Admit Provider: Sivakumar Hurley Primary Care Provider: Geovani Churchill Other Providers: Sivakumar Hurley ; César Mcclelland ; Robby Bains Jr Coding Level of Care Code 08740 INP/OBS DISCH >30 MIN Diagnoses Small bowel obstruction K56.609 Chronic back pain M54.9; G89.29 Abdominal pain R10.9 Right inguinal hernia K40.90 Tobacco abuse Z72.0 Vitamin D deficiency E55.9
--- NOTE | 2023-07-08 11:49 | Gastroenterology Progress Note ---
Date of Service July 08, 2023 Assessment & Plan (1) Small bowel obstruction: Plan: Doing well. Okay with me to advance diet and discharge if he does well. I told him to follow up with Dr. Barker to pursue this further Admission and Anticipated Discharge Date Admission Date: July 06, 2023 Subjective Feeling fine. Having multiple bm's Review of Systems Review of Systems: All systems reviewed & are unremarkable except as noted in HPI & below Physical Exam Physical Exam: He looks well Constitutional: WD/WN, vitals as above Results & Data Vital Signs (Past 12 Hours) Vital Signs Temp Pulse Resp BP Pulse Ox O2 Del Method 07/08/23 07:20 36.7 C 53 L 16 153/78 H 96 Room Air
--- NOTE | 2023-07-08 16:49 | XRay Report ---
XR KUB/Abdomen 1 view CLINICAL HISTORY: f/u sbo vs ileus TECHNIQUE: 1 view of the abdomen was obtained. Comparison: Comparison is made to chest radiograph 07/07/2023 FINDINGS: Lung bases are unremarkable. Redemonstration of multiple loops of distended small bowel. Large bowel gas is seen on today's exam, likely increased from prior. IMPRESSION: Redemonstration multiple loops of small bowel compatible with continuing small bowel obstruction. The re is a slightly greater amount of large bowel gas, suggestive of slightly improving disease. ACT 112: Negative or not required by law. Electronically signed by: Hayden Guthrie M.D. 07/08/2023 4:48 PM
== END 2023-07-08 13:58 | disposition home or self-care (01) | DRG 389 ==
LOC: ED 15:15 → SUATTDRO 16:33 → 3W 16:33